=== PATIENT | male | born 1945 | race Caucasian/White ===

== ENCOUNTER 2017-09-21 14:51 | Inpatient (IN) ==
[2017-09-21] MEDS ORDERED: 0.9 % Sodium Chloride 1,000 ML IVC ONE (15:28)
[2017-09-21] MEDS ORDERED: Isovue-370 500 ML INFUS..BTL IV ONE (15:35)
--- NOTE | 2017-09-21 15:48 | Emergency Department Note ---
Disposition Clinical Impression: Lower gastrointestinal hemorrhage, Hematochezia Hemorrhoids Qualifiers: Hemorrhoid type: unspecified Qualified Code(s): K64.9 - Unspecified hemorrhoids Disposition: Admitted As Inpatient [facility]Primary Care Provider[facility] - Forms: ED Satisfaction Letter Time of Disposition: 19:30 General Adult HPI - General Chief complaint: ED GI Bleed Stated complaint: GI bleed Time Seen by Provider: 09/21/17 15:16 Source: patient Limitations: no limitations Nursing Notes Reviewed: Yes Vital Signs Reviewed: Yes - History of Present Illness HPI Narrative: 73-year-old male positive for history of Parkinson's, BPH, incontinence, hydrocephalus, aortic stenosis presents today for a 2 day history of bright red blood on stool. Patient is unable to provide history of present illness. is at bedside. Patient went to NH and was sent to [place] for further management. She states that the patient had 2 bloody stools yesterday in the evening at 1730 and 1930. Patient had another bloody stool this morning at 0800. has photograph of this morning's bowel movement. She reports that the patient has been acting more irritated. Bowel movements have been bright red and unformed. Denies worsening confusion, mental status. Patient takes aspirin but no other anticoagulant. Patient never had this kind of episode before. He has chronic constipation and takes lactulose/senna. Does admit to decrease in appetite. Denies chest pain, shortness of breath, hemoptysis. patient also admits to history of UTI 3 weeks ago treated at the NH with Bactrim and ampicillin. Currently denies dysuria/hematuria. Has not taken any medications for current bleed. Last colonoscopy in 2001 with unknown results. 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 He had open abdominal surgery due to trauma. No further acute complaints. Pt Subjective Complaint: Rectal bleeding Pain Scale: 0 - Related Data Home Medications Medication Instructions Recorded Confirmed Aspirin Enteric Coated [Aspirin EC] 81 mg PO DAILY 09/21/17 09/21/17 Brimonidine Tartrate [Alphagan P] 1 drop OP BID 09/21/17 09/21/17 Carbidopa/Levodopa 25/100 [Sinemet 1 tab PO QID 09/21/17 09/21/17 25/100] Cholecalciferol (D-3) [Vitamin D] 2,000 unit PO DAILY 09/21/17 09/21/17 Docusate Sodium [Colace] 200 mg PO BID PRN 09/21/17 09/21/17 Finasteride [Proscar] 5 mg PO DAILY 09/21/17 09/21/17 Furosemide [Lasix] 10 mg PO DAILY 09/21/17 09/21/17 Lactobacillus Combo No.10 1 cap PO DAILY 09/21/17 09/21/17 [Probiotic] Lactose-Reduced Food [Ensure Plus] 240 ml PO BID 09/21/17 09/21/17 Melatonin 10 mg PO HS 09/21/17 09/21/17 Quetiapine Fumarate [SEROquel] 12.5 mg PO QAM 09/21/17 09/21/17 Quetiapine Fumarate [SEROquel] 25 mg PO HS 09/21/17 09/21/17 Ropinirole HCl [Requip] 0.5 mg PO BID 09/21/17 09/21/17 Sennosides [Senna] 17.2 mg PO QPM PRN 09/21/17 09/21/17 Tamsulosin HCl [Flomax] 0.4 mg PO DAILY 09/21/17 09/21/17 Travoprost [Travatan Z] 1 drop OP HS 09/21/17 09/21/17 Trazodone HCl [Trazodone HCl] 100 mg PO 09/21/17 09/21/17 Allergies Allergy/AdvReac Type Severity Reaction Status Date / Time Buspirone AdvReac Intermediate Agitated Verified 09/21/17 17:38 lorazepam AdvReac Intermediate Agitated Verified 09/21/17 17:38 latanoprost AdvReac Mild eye redness Verified 09/21/17 17:38 levofloxacin AdvReac Mild Cramping Verified 09/21/17 17:38 of the Muscles divalproex sodium AdvReac Unknown Agitated Verified 09/21/17 17:38 All systems ED: reviewed and negative except as stated. Review of Systems: As Per HPI Constitutional: Reports: as per HPI, other (History of present illness obtained by at bedside) Cardiovascular: Reports: as per HPI Respiratory: Reports: as per HPI Gastrointestinal: Reports: as per HPI Musculoskeletal: Reports: as per HPI Integumentary: Reports: as per HPI Neurological: Reports: as per HPI Endocrine: Reports: as per HPI Past Medical History - Past Medical History Medical history: Reports: hyperlipidemia, hypertension, other Psychiatric history: Reports: no psych history - Social History Smoking Status: Never smoker Smokeless Tobacco Status: No Alcohol use: Reports: none Drug use: Reports: none Physical Exam - General Limitations: altered mental status, physical limitation, age General appearance: alert, in no apparent distress, cachectic, other (Patient is an flexed position.) - Head Head exam: atraumatic, normocephalic, normal inspection - Eye Eye exam: Present: normal appearance, EOMI. Absent: scleral icterus - Expanded Eye Exam Pupils: Left: reactive - ENT ENT exam: normal exam, normal oropharynx, mucous membranes moist - Expanded ENT Exam External ear exam: Present: normal external inspection Mouth exam: Present: normal external inspection Teeth exam: Present: normal inspection Throat exam: Present: normal inspection - Neck Neck exam: Present: normal inspection, full ROM, trachea midline - Chest Chest inspection: Present: normal inspection, symmetric chest wall rise - Respiratory Respiratory exam: Present: normal lung sounds bilaterally - Cardiovascular Cardiovascular exam: Present: regular rate, normal rhythm, normal heart sounds - Abdominal Exam Abdominal exam: Present: soft, Non-Tender, normal bowel sounds, other (Last upper quadrant scars noted from history of VICKI drain and PEG tube. Approximately 1 inch each. 15 cm vertical scar noted on epigastric area from expiratory abdominal surgery in the past.). 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 Absent: tenderness, pedal edema - Expanded Upper Extremity Exam Shoulder exam: Present: normal inspection, full ROM Arm exam: Present: normal inspection, full ROM Elbow exam: Present: normal inspection, full ROM Forearm/Wrist exam: Present: normal inspection, full ROM Hand exam: Present: normal inspection, full ROM Vascular exam: Normal: capillary refill, radial pulse - Expanded Lower Extremity Exam Hip/Pelvis exam: Present: normal inspection, full ROM Upper leg exam: Present: normal inspection, full ROM Knee exam: Present: normal inspection, full ROM Lower leg exam: Present: normal inspection, full ROM Ankle exam: Present: normal inspection, full ROM Foot/toe exam: Present: normal inspection, full ROM Neurovascular/Tendon exam: Absent: motor deficit, sensory deficit, tendon deficit - Back Exam Back exam: Present: other (flexed position). Absent: tenderness - Neurological Exam Neurological exam: Present: alert, other (oriented to person and year ) - Expanded Neurological Exam Patient oriented to: Present: person, place, time Coma Scale Eye Opening: Spontaneous Coma Scale Motor Response: Obeys Commands Coma Scale Verbal Response: Oriented Coma Scale Total: 15 - Psychiatric Psychiatric exam: Present: normal affect, normal mood - Skin Skin exam: Present: warm, dry, intact, normal color Course Course Narrative: And presents with active GI bleed. He is not on any anticoagulation besides aspirin 81 mg. We will obtain a CT abdomen/pelvis with contrast. CBC/CMP/PT/ INR/lactate pending. Hemoglobin at NH was 13.5. Blood type and crossing ordered. Pending Rodriguez and UA with culture 2/2 history of incontinence and UTI. External hemorrhoid noted without acute bleed, not source of bleeding. We will admit to hospitalist service once CT abdomen and lab work returns. Patient will likely require a repeat colonoscopy to determine source of bleeding. - Reevaluation(s) Reevaluation #1: CT results shows marked mural thickening involving the sigmoid colon and rectum compatible with nonspecific colitis/proctitis. Also possible UTI, but UA is negative. Will admit for GIB, unknown source. Pending hospitalist admission. Time: 19:20 Reevaluation #2: Patient is complaining of worsening agitation. He is requesting Seroquel. BP 165/116, repeat 158/112. Patient does not have history of high blood pressure. I will start him on his home dose Seroquel, trazodone, and melatonin. Pending admission Time: 20:30 Reevaluation #3: Patient spitted out his medications, including melatonin, clonidine, trazodone. Time: 20:50 Vital Signs Temperature 98.1 F 09/21/17 14:55 Pulse Rate 65 09/21/17 14:55 Respiratory Rate 12 09/21/17 14:55 Blood Pressure 142/100 09/21/17 14:55 O2 Sat by Pulse Oximetry 96 09/21/17 14:55 Temperature 98.1 F 09/21/17 14:55 Pulse Rate 79 09/21/17 19:30 Respiratory Rate 12 09/21/17 19:30 Blood Pressure 136/97 09/21/17 19:30 O2 Sat by Pulse Oximetry 94 09/21/17 19:30 Oxygen Delivery Oxygen Delivery Room Air Medical Decision Making - MDM Narrative Medical decision making narrative: patient with no past med hematologic disease presents today with 3 episodes of bright red blood in stool in the last 2 days. Patient is on aspirin but not on any other anticoagulant. White blood cell count elevated without signs of fever. Chest x-ray is unremarkable. Lactic acid 1.1, troponin 0.04. Patient has history of aortic stenosis. No previous cardiac workup. I recommended an echocardiogram on admission. Patient will likely require a colonoscopy to determine source of active bleed. Pending admission to hospitalist service. - Medical Records Medical records reviewed: Yes I reviewed the patient's medical records. - Lab Data Lab results reviewed: Yes I reviewed the patient's lab results. Result diagrams: 09/21/17 16:41 09/21/17 16:41 Lab Results 09/21/17 09/21/17 09/21/17 Range/Units 16:41 16:41 16:41 WBC 13.8 H (4.3-11.1) K/mcL RBC 4.51 (4.19-5.50) M/mcL Hgb 14.8 (12.9-16.9) g/dL Hct 43.3 (37.5-50.1) % MCV 96.0 (83.0-100.0) fL MCH 32.8 (28.0-33.3) pg MCHC 34.2 (31.6-35.5) g/dL RDW 12.7 (11.5-14.5) % Plt Count 161 (140-400) K/mcL MPV 11.2 (9.4-12.4) fL Immature Gran % 0.4 (0-4) % Seg Neutrophils % 73.2 % Lymphocytes % 13.7 % Monocytes % 8.3 % Eosinophils % 3.7 % Basophils % 0.7 % Neutrophils # 10.1 H (1.6-8.9) K/mcL Lymphocytes # 1.9 (0.6-4.6) K/mcL Monocytes # 1.1 (0.0-1.3) K/mcL Eosinophils # 0.5 (0.0-0.6) K/mcL Basophils # 0.1 (0.0-0.2) K/mcL PT 12.5 H (9.4-12.1) Seconds INR 1.2 APTT 39.4 H (26.0-36.0) Seconds Sodium (136-145) mEq/L Potassium (3.5-5.1) mEq/L Chloride (98-107) mEq/L Carbon Dioxide (23-29) mEq/L BUN (8-23) mg/dL Creatinine (0.70-1.30) mg/dL Est GFR ( Amer) (> 60) Est GFR (Non-Af Amer) (> 60) BUN/Creatinine Ratio (6-26) Glucose (70-105) mg/dL Calculated Osmolality (280-300) Lactic Acid (0.5-2.2) mmol/L Calcium (8.6-10.3) mg/dL Total Bilirubin (0.3-1.0) mg/dL AST (13-39) Units/L ALT (7-52) Units/L Alkaline Phosphatase (34-104) Units/L Troponin I (< 0.04) ng/mL Serum Total Protein (6.4-8.9) g/dL Albumin (3.5-5.7) g/dL Globulin (2.4-3.5) g/dL Albumin/Globulin Ratio (1.1-2.2) Urine Color (Yellow) Urine Clarity (Clear) Urine pH (5.0-8.0) pH Units Ur Specific [place] (1.010-1.025) Urine Protein (Neg-Trace) mg/dL Urine Glucose (UA) (Normal) mg/dL Urine Ketones (Negative) mg/dL Urine Blood (Negative) Urine Nitrite (Negative) Urine Bilirubin (Negative) Urine Urobilinogen (Normal) mg/dL Ur Leukocyte Esterase (Negative) Urine Microscopic RBC (0-3) per hpf Urine Microscopic WBC (0-3) per hpf Ur Squamous Epith Cells (None-Few) per lpf Urine Bacteria (None-Few) per hpf Hyaline Casts (None-Few) per lpf Ur Culture Indicated? (NO) Blood Type O POSITIVE Antibody Screen NEGATIVE 09/21/17 09/21/17 09/21/17 Range/Units 16:41 16:41 18:30 WBC (4.3-11.1) K/mcL RBC (4.19-5.50) M/mcL Hgb (12.9-16.9) g/dL Hct (37.5-50.1) % MCV (83.0-100.0) fL MCH (28.0-33.3) pg MCHC (31.6-35.5) g/dL RDW (11.5-14.5) % Plt Count (140-400) K/mcL MPV (9.4-12.4) fL Immature Gran % (0-4) % Seg Neutrophils % % Lymphocytes % % Monocytes % % Eosinophils % % Basophils % % Neutrophils # (1.6-8.9) K/mcL Lymphocytes # (0.6-4.6) K/mcL Monocytes # (0.0-1.3) K/mcL Eosinophils # (0.0-0.6) K/mcL Basophils # (0.0-0.2) K/mcL PT (9.4-12.1) Seconds INR APTT (26.0-36.0) Seconds Sodium 135 L (136-145) mEq/L Potassium 4.0 (3.5-5.1) mEq/L Chloride 102 (98-107) mEq/L Carbon Dioxide 23 (23-29) mEq/L BUN 28 H (8-23) mg/dL Creatinine 1.02 (0.70-1.30) mg/dL Est GFR ( Amer) > 60 (> 60) Est GFR (Non-Af Amer) > 60 (> 60) BUN/Creatinine Ratio 27 H (6-26) Glucose 99 (70-105) mg/dL Calculated Osmolality 286 (280-300) Lactic Acid 1.1 (0.5-2.2) mmol/L Calcium 9.6 (8.6-10.3) mg/dL Total Bilirubin 0.6 (0.3-1.0) mg/dL AST 13 (13-39) Units/L ALT 5 L (7-52) Units/L Alkaline Phosphatase 85 (34-104) Units/L Troponin I 0.04 H* (< 0.04) ng/mL Serum Total Protein 7.6 (6.4-8.9) g/dL Albumin 4.3 (3.5-5.7) g/dL Globulin 3.3 (2.4-3.5) g/dL Albumin/Globulin Ratio 1.3 (1.1-2.2) Urine Color Yellow (Yellow) Urine Clarity Clear (Clear) Urine pH 5.5 (5.0-8.0) pH Units Ur Specific [place] 1.015 (1.010-1.025) Urine Protein Negative (Neg-Trace) mg/dL Urine Glucose (UA) Normal (Normal) mg/dL Urine Ketones Negative (Negative) mg/dL Urine Blood Moderate H (Negative) Urine Nitrite Negative (Negative) Urine Bilirubin Negative (Negative) Urine Urobilinogen Normal (Normal) mg/dL Ur Leukocyte Esterase Trace H (Negative) Urine Microscopic RBC 3-5 H (0-3) per hpf Urine Microscopic WBC 0-3 (0-3) per hpf Ur Squamous Epith Cells Many H (None-Few) per lpf Urine Bacteria None Seen (None-Few) per hpf Hyaline Casts None Seen (None-Few) per lpf Ur Culture Indicated? NO. A (NO) Blood Type Antibody Screen - Radiology Data Radiology results reviewed: Yes I reviewed the patient's radiology results. - EKG Data EKG #1 EKG attestation: Yes I reviewed and interpreted this EKG. EKG results narrative: Ventricular rate 69, [place] interval 236, QRS 150. Prolonged [place] interval when compared with old EKG EKG shows normal: sinus rhythm Rate: normal Rhythm: NSR [place]/QRS: normal Heart block present: 1st Degree When compared to previous EKG there are: changes noted (prolonged [place] interval) Interpretation: no acute changes
--- NOTE | 2017-09-21 16:37 | Emergency Department Note ---
Disposition Clinical Impression: Lower gastrointestinal hemorrhage, Hematochezia Hemorrhoids Qualifiers: Hemorrhoid type: unspecified Qualified Code(s): K64.9 - Unspecified hemorrhoids Disposition: Admitted As Inpatient [facility]Primary Care Provider[facility] - Forms: ED Satisfaction Letter General Adult HPI - General Chief complaint: ED GI Bleed Stated complaint: GI bleed Time Seen by Provider: 09/21/17 15:16 Source: patient Limitations: altered mental status, physical limitation, age - History of Present Illness Pain Scale: 0 - Related Data Allergies Allergy/AdvReac Type Severity Reaction Status Date / Time Buspirone AdvReac Intermediate Agitated Verified 09/21/17 15:20 lorazepam AdvReac Intermediate Agitated Verified 09/21/17 15:20 latanoprost AdvReac Mild eye redness Verified 09/21/17 15:20 levofloxacin AdvReac Mild Cramping Verified 09/21/17 15:20 of the Muscles divalproex sodium AdvReac Unknown Agitated Verified 09/21/17 15:20 Constitutional: Reports: as per HPI, other (History of present illness obtained by at bedside) Cardiovascular: Reports: as per HPI Respiratory: Reports: as per HPI Gastrointestinal: Reports: as per HPI Musculoskeletal: Reports: as per HPI Integumentary: Reports: as per HPI Neurological: Reports: as per HPI Endocrine: Reports: as per HPI Past Medical History - Past Medical History Medical history: Reports: hyperlipidemia, hypertension, other Psychiatric history: Reports: no psych history - Social History Smoking Status: Never smoker Smokeless Tobacco Status: No Alcohol use: Reports: none Drug use: Reports: none Physical Exam - General Limitations: altered mental status, physical limitation, age General appearance: alert, in no apparent distress, cachectic, other (Patient is an flexed position.) Course Vital Signs Temperature 98.1 F 09/21/17 14:55 Pulse Rate 65 09/21/17 14:55 Respiratory Rate 12 09/21/17 14:55 Blood Pressure 142/100 09/21/17 14:55 O2 Sat by Pulse Oximetry 96 09/21/17 14:55 Temperature 98.1 F 09/21/17 14:55 Pulse Rate 65 09/21/17 14:55 Respiratory Rate 12 09/21/17 14:55 Blood Pressure 142/100 09/21/17 14:55 O2 Sat by Pulse Oximetry 94 09/21/17 16:05 Oxygen Delivery Oxygen Delivery Room Air Attestation Statement - Attestation Attestation: I examined this patient and my medical decision-making was reviewed with the Resident Physician. I agree with the documented findings, disposition and treatment plan as described except to the extent set forth below. I had face to face time with the patient. This is a 72-year-old whose had bright red blood per rectum for last couple of days. [facility]. His hemoglobin is in the normal range however his has a picture of a of grossly bloody bowel movement earlier today. Physical examination he does have an external hemorrhoid but this does not appear to be the source of the bleeding. Does have some mild tenderness of the abdomen without guarding or rebound. Lab work was reviewed. We will obtain a CT scan and admitted to the hospital.
[2017-09-21 16:59] LABS: Basophils # 0.1 K/mcL (0.0-0.2); Basophils % 0.7 %; Eosinophils # 0.5 K/mcL (0.0-0.6); Eosinophils % 3.7 %; Hematocrit 43.3 % (37.5-50.1); Hemoglobin 14.8 g/dL (12.9-16.9); Immature Granulocytes % 0.4 % (0-4); Lymphocytes # 1.9 K/mcL (0.6-4.6); Lymphocytes % 13.7 %; Mean Corpuscular HGB Conc 34.2 g/dL (31.6-35.5); Mean Corpuscular Hemoglobin 32.8 pg (28.0-33.3); Mean Platelet Volume 11.2 fL (9.4-12.4); Monocytes # 1.1 K/mcL (0.0-1.3); Monocytes % 8.3 %; Neutrophils # 10.1 K/mcL (1.6-8.9); Platelet Count 161 K/mcL (140-400); Red Blood Count 4.51 M/mcL (4.19-5.50); Red Cell Distribution Width 12.7 % (11.5-14.5); Segmented Neutrophils % 73.2 %
[2017-09-21 17:08] LABS: INR 1.2; Prothrombin Time 12.5 Seconds (9.4-12.1)
[2017-09-21 17:11] LABS: Activated Partial Thrombo Time 39.4 Seconds (26.0-36.0)
[2017-09-21 17:21] LABS: Troponin I 0.04 ng/mL (< 0.04)
[2017-09-21 17:28] LABS: BUN/Creatinine Ratio 27 (6-26); Blood Urea Nitrogen 28 mg/dL (8-23); Carbon Dioxide 23 mEq/L (23-29); Chloride 102 mEq/L (98-107); Sodium 135 mEq/L (136-145)
[2017-09-21 17:29] LABS: Alanine Aminotransferase 5 Units/L (7-52); Albumin 4.3 g/dL (3.5-5.7); Albumin/Globulin Ratio 1.3 (1.1-2.2); Alkaline Phosphatase 85 Units/L (34-104); Aspartate Amino Transferase 13 Units/L (13-39); Bilirubin,Total 0.6 mg/dL (0.3-1.0); Calcium 9.6 mg/dL (8.6-10.3); Globulin 3.3 g/dL (2.4-3.5); Glucose 99 mg/dL (70-105); Osmolality,Calculated 286 (280-300); Total Protein 7.6 g/dL (6.4-8.9); eGFR For African Americans > 60 (> 60); eGFR For Non-African Americans > 60 (> 60)
[2017-09-21 18:43] LABS: Bilirubin,Urine Negative (Negative); Blood,Urine Moderate (Negative); Clarity,Urine Clear (Clear); Color,Urine Yellow (Yellow); Glucose,Urine (UA) Normal (Normal); Ketones,Urine Negative (Negative); Leukocyte Esterase,Urine Trace (Negative); Nitrite,Urine Negative (Negative); PH,Urine 5.5 pH Units (5.0-8.0); Protein,Urine Negative (Neg-Trace); Specific Gravity,Urine 1.015 (1.010-1.025); Urobilinogen,Urine Normal (Normal)
[2017-09-21 18:45] LABS: Bacteria,Urine None Seen per hpf (None-Few); Hyaline Casts,Urine None Seen per lpf (None-Few); Squamous Epithelial Cell,Urine Many per lpf (None-Few); WBC,Urine 0-3 per hpf (0-3)
[2017-09-21] MEDS ORDERED: *HR* FentaNYL (PF) 100 MCG/2 ML VIAL IVP ONE (20:38)
[2017-09-21] MEDS: cloNIDine HCl 0.1 MG TABLET PO ONE ×2 (21:09→21:25)
[2017-09-21] MEDS: Melatonin 3 MG TABLET PO PRN (21:09)
[2017-09-21] MEDS: traZODone 50 MG TABLET PO SCH ×2 (21:09→21:25)
[2017-09-21] MEDS ORDERED: Naloxone 0.4 MG/ML INJ IVP PRN (21:45)
[2017-09-21] MEDS ORDERED: Acetaminophen 325 MG TABLET PO PRN (21:45)
[2017-09-21] MEDS ORDERED: Sennosides 8.6 MG TABLET PO PRN (21:58)
--- NOTE | 2017-09-21 22:10 | Internal Med History&Physical ---
Date of Encounter: 09/21/17 Time of Encounter: 21:30 Internal Medicine - H&P: HPI Chief complaint: rectal bleed Admitted From: Emergency Dept Plans for Post Hospital Care: Home History of present illness: Mr. Duran is a 72 year old male who presents to the ER tonight from the [place] [facility]. He presented to the [place] earlier today with complaints of rectal bleed. Patient had an episode last night and this morning in his Depends diaper. His was changing him when she noticed blood and blood clots in the stool. He therefore went to the [place] urgent care where they saw and assessed patient and then referred him to our ER. Workup in ER included CT scan of abdomen and pelvis along with routine labs. The CT scan revealed patient to have evidence of proctitis/colitis. He was therefore admitted to hospitalist. Upon my assessment of the patient in the ER, patient is sleeping and not cooperative with history. History was obtained mostly by his and his son. They confirmed above history. Prior to yesterday, he has had no bloody stools or any GI issues except for constipation. 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 His and son provide much of his care for him. However, he is verbal and interactive at times with them but not very physically active. Of note, he did have a recent UTI treated with 2 different antibiotics which he finished last week. He has had no bloody diarrhea or any diarrhea whatsoever. He suffers mostly from constipation. The bloody episode yesterday and today were the first time he has had these, and they were mostly blood and blood clots with very little formed stool. Past Med Surg Social Fam HX - Past Medical History Attestation: Yes The following information was validated with the patient. Source: old records reviewed, obtained from family Medical history: hyperlipidemia, hypertension, other Additional medical history: TBI (1977) brain shunt, parkinsons, Falls, cracked right orbital bone, fractured skull (2014), aortic stenosis, heart murmur, frequent UTIs. enlarged prostate Psychiatric history: no psych history - Past Surgical History Additional surgical history: brain surgery (1977), stomach bypass - Social History Smoking Status: Never smoker Smokeless Tobacco Status: No Alcohol use: none Drug use: none Current living situation: Home, With Family Activity Level: Mostly sedentary Recent Out of Country Travel Within the Last 8 Weeks: No - Family History Mother History Unknown: Yes Father History Unknown: Yes Internal Medicine - H&P: Meds Aspirin Enteric Coated [Aspirin EC] 81 mg PO DAILY 09/21/17 [History] Brimonidine Tartrate [Alphagan P] 1 drop OP BID 09/21/17 [History] Carbidopa/Levodopa 25/100 [Sinemet 25/100] 1 tab PO QID 09/21/17 [History] Cholecalciferol (D-3) [Vitamin D] 2,000 unit PO DAILY 09/21/17 [History] Docusate Sodium [Colace] 200 mg PO BID PRN 09/21/17 [History] Finasteride [Proscar] 5 mg PO DAILY 09/21/17 [History] Furosemide [Lasix] 10 mg PO DAILY 09/21/17 [History] Lactobacillus Combo No.10 [Probiotic] 1 cap PO DAILY 09/21/17 [History] Lactose-Reduced Food [Ensure Plus] 240 ml PO BID 09/21/17 [History] Melatonin 10 mg PO HS 09/21/17 [History] Quetiapine Fumarate [SEROquel] 12.5 mg PO QAM 09/21/17 [History] Quetiapine Fumarate [SEROquel] 25 mg PO HS 09/21/17 [History] Ropinirole HCl [Requip] 0.5 mg PO BID 09/21/17 [History] Sennosides [Senna] 17.2 mg PO QPM PRN 09/21/17 [History] Tamsulosin HCl [Flomax] 0.4 mg PO DAILY 09/21/17 [History] Travoprost [Travatan Z] 1 drop OP HS 09/21/17 [History] Trazodone HCl [Trazodone HCl] 100 mg PO HS 09/21/17 [History] 3 Allergy/AdvReac Type Severity Reaction Status Date / Time Buspirone AdvReac Intermediate Agitated Verified 09/21/17 17:38 lorazepam AdvReac Intermediate Agitated Verified 09/21/17 17:38 latanoprost AdvReac Mild eye redness Verified 09/21/17 17:38 levofloxacin AdvReac Mild Cramping Verified 09/21/17 17:38 of the Muscles divalproex sodium AdvReac Unknown Agitated Verified 09/21/17 17:38 Review of systems: per family - Constitutional Constitutional: no chills, no fever(s), no night sweats - EENT Eyes: no change in vision Nose, mouth and throat: no nasal congestion, no sore throat - Cardiovascular Cardiovascular ROS IM: no chest pain, no dyspnea, no edema - Respiratory Respiratory: no cough, no hemoptysis, no wheezing, no chest congestion, no excessive phlegm production - Gastrointestinal Gastrointestinal: constipation, hematochezia, no abdominal pain, no diarrhea, no melena, no nausea, no vomiting - Genitourinary Genitourinary ROS male: no dysuria, no flank pain, no hematuria - Musculoskeletal Musculoskeletal ROS IM: no joint swelling - Integumentary Integumentary IM: no rash, no jaundice - Neurological Neurological ROS: no focal weakness, no frequent falls, no headache(s) - Psychiatric Psychiatric: anxiety, depression - Endocrine Endocrine IM: no polydipsia, no polyuria - Hematologic/Lymphatic Hematologic/Lymphatic: no easy bruising - Allergic/Immunologic Allergic/Immunologic: no GI upset with certain foods - Constitutional Vitals: Temp Pulse Resp BP Pulse Ox 97.6 F 67 16 149/94 94 09/21/17 21:59 09/21/17 21:59 09/21/17 21:59 09/21/17 21:59 09/21/17 21:59 General appearance: Present: no acute distress Exam: sleeping, resting comfortably, not very cooperative with exam - Head Head exam: Present: normal inspection - Eye Eye exam: Present: normal appearance. Absent: scleral icterus - ENT ENT exam: Present: mucous membranes dry, normal exam - Neck Neck exam general surgery: Present: full ROM, supple. Absent: tenderness, nuchal rigidity, thyromegaly - Respiratory Respiratory exam: Present: CTAB. Absent: chest wall tenderness, rales, respiratory distress, rhonchi, wheezes - Cardiovascular Cardiovascular exam: Present: RRR, +S1, +S2, systolic murmur ( type murmur) - GI/Abdominal GI/Abdominal exam: Present: normal bowel sounds, soft, no peritoneal signs. Absent: guarding, hepatomegaly, mass, rebound, splenomegaly, tenderness Additional comments: old surgical scar on abdomen - Extremities Exam Extremities exam: Present: full ROM, normal capillary refill, warm, radial pulses palpable and symmetrical. Absent: calf tenderness, joint swelling, pedal edema, tenderness - Back Exam Back exam: Absent: CVA tenderness (L), CVA tenderness (R) - Neurological Exam Additional comments: somnolent; moves four extremities; not cooperative with exam - Psychiatric Additional comments: unable to assess - Skin Skin exam: Present: dry, intact, warm Internal Med - H&P Results - Labs CBC & Chem 7: 09/21/17 16:41 09/21/17 16:41 - EKG Data -: EKG Interpreted by Myself - EKG Data EKG comments: 09/21/17 22:16 NSR; incomplete RBBB - Diagnostic Studies CT scan - abdomen Additional comments: Report reviewed and proctitis/colitis noted. - Assessment and plan (1) Colitis Current Visit: Yes Status: Acute Assessment and plan: 1. Will treat with IVF, IV antibiotics, and clear liquid diet. 2. Advance diet as tolerated as long as clinical picture dictates. 3. May need strict bowel rest if condition worsens. Presently, abdominal exam is benign. 4. Patient will need endoscopy, likely outpatient once condition improves. May need inpatient endoscopy if patient develops significant bleed. 5. Monitor H/H. (2) Elevated troponin Current Visit: Yes Status: Acute Assessment and plan: 1. Per family, no reports of chest pain. 2. Will trend troponins, EKG's, and order ECHO. 3. Further work-up if indicated. (3) Aortic stenosis Current Visit: Yes Status: Chronic Assessment and plan: 1. Will order ECHO to evaluate degree of stenosis. 2. Per family, this is known and followed by [facility]. Qualifiers: Cardiac valve disease etiology: etiology unspecified Qualified Code(s): I35.0 - Nonrheumatic aortic (valve) stenosis (4) Parkinson disease Current Visit: Yes Status: Chronic Assessment and plan: 1. Continue home meds as appropriate (5) DVT prophylaxis Current Visit: Yes Status: Acute Assessment and plan: 1. Heparin SQ.
[2017-09-21] MEDS: 0.9 % Sodium Chloride 1,000 ML IVC SCH (23:24)
[2017-09-21] MEDS: MetroNIDAZOLE 500 MG/100 ML 500 MG/100 ML BAG IVPB SCH (23:24)
[2017-09-22] MEDS: Piperacillin/Tazobactam 3.375 GM in 0.9 % Sodium Chloride Mini Bag 100 ML IVPB SCH ×3 (00:21→18:55)
[2017-09-22] MEDS: Melatonin 3 MG TABLET PO PRN (03:00)
[2017-09-22 05:27] LABS: Basophils # 0.1 K/mcL (0.0-0.2); Basophils % 0.7 %; Eosinophils # 0.6 K/mcL (0.0-0.6); Eosinophils % 5.5 %; Hematocrit 38.6 % (37.5-50.1); Immature Granulocytes % 0.3 % (0-4); Lymphocytes # 1.7 K/mcL (0.6-4.6); Lymphocytes % 15.7 %; Mean Corpuscular HGB Conc 33.9 g/dL (31.6-35.5); Mean Corpuscular Hemoglobin 32.1 pg (28.0-33.3); Mean Corpuscular Volume 94.6 fL (83.0-100.0); Mean Platelet Volume 11.3 fL (9.4-12.4); Neutrophils # 7.4 K/mcL (1.6-8.9); Platelet Count 138 K/mcL (140-400); Red Blood Count 4.08 M/mcL (4.19-5.50); Red Cell Distribution Width 12.5 % (11.5-14.5); Segmented Neutrophils % 68.8 %
[2017-09-22 05:32] LABS: Hemoglobin 13.1 g/dL (12.9-16.9)
[2017-09-22 05:46] LABS: Alanine Aminotransferase 13 Units/L (7-52); Albumin 3.5 g/dL (3.5-5.7); Albumin/Globulin Ratio 1.3 (1.1-2.2); Alkaline Phosphatase 68 Units/L (34-104); Aspartate Amino Transferase 12 Units/L (13-39); BUN/Creatinine Ratio 25 (6-26); Bilirubin,Total 0.8 mg/dL (0.3-1.0); Blood Urea Nitrogen 22 mg/dL (8-23); Calcium 8.9 mg/dL (8.6-10.3); Carbon Dioxide 20 mEq/L (23-29); Chloride 109 mEq/L (98-107); Chol/HDL Ratio 3.4 (0-4.9); Cholesterol 151 mg/dL (< 200); Globulin 2.8 g/dL (2.4-3.5); Glucose 90 mg/dL (70-105); HDL Cholesterol 44 mg/dL (40-59); LDL Cholesterol,Calculated 94 mg/dL (0-99); Magnesium 1.9 mg/dL (1.6-2.6); Osmolality,Calculated 289 (280-300); Potassium 3.7 mEq/L (3.5-5.1); Sodium 138 mEq/L (136-145); Total Protein 6.3 g/dL (6.4-8.9); Triglycerides 63 mg/dL (< 150); eGFR For African Americans > 60 (> 60); eGFR For Non-African Americans > 60 (> 60)
[2017-09-22] MEDS: *HR* Heparin 5,000 UNIT/ML VIAL SQ SCH ×3 (06:33→17:16)
[2017-09-22] MEDS: MetroNIDAZOLE 500 MG/100 ML 500 MG/100 ML BAG IVPB SCH ×2 (08:58→17:12)
[2017-09-22] MEDS ORDERED: LACTOSE REDUCED FOOD PO SCH (09:00)
[2017-09-22] MEDS ORDERED: Lactobacillus 1 EACH CAP.SPRINK PO SCH (09:00)
[2017-09-22] MEDS: rOPINIRole 0.25 MG TABLET PO SCH ×2 (09:06→20:45)
[2017-09-22] MEDS: Cholecalciferol (D-3) 1,000 UNIT TABLET PO SCH (09:06)
[2017-09-22] MEDS: Finasteride 5 MG TABLET PO SCH (09:06)
[2017-09-22] MEDS: Aspirin Enteric Coated 81 MG Tablet PO SCH (09:07)
[2017-09-22] MEDS: Carbidopa/Levodopa 25/100 TABLET PO SCH ×4 (09:07→20:46)
[2017-09-22] MEDS: 0.9 % Sodium Chloride 1,000 ML IVC SCH (11:21)
--- NOTE | 2017-09-22 16:30 | Internal Med Progress Note ---
Date of Encounter: 09/22/17 Time of Encounter: 14:00 - Assessment and plan (1) Colitis Current Visit: Yes Status: Acute Assessment and plan: continue current antibiotic, risk of GI bleeding,counseling about May need colonoscopy counseling about risk and benefit based on my discussion and comorbidity she want to avoid any invacontinue medical management (2) Elevated troponin Current Visit: Yes Status: Acute Assessment and plan: possible secondary to volume depletion, no evidence of acute coronary syndrome , patient denies any chest pain close monitoring (3) Aortic stenosis Current Visit: Yes Status: Chronic Qualifiers: Cardiac valve disease etiology: etiology unspecified Qualified Code(s): I35.0 - Nonrheumatic aortic (valve) stenosis (4) Parkinson disease Current Visit: Yes Status: Chronic Assessment and plan: ontinue current medication (5) DVT prophylaxis Current Visit: Yes Status: Acute (6) Dementia with behavioral problem Current Visit: Yes Status: Acute Assessment and plan: counseling and about polypharmacy,add Aricept to help with his progressive memory loss and behavioral problem,onsider SSRI for his anxiety Qualifiers: Dementia type: unspecified type Qualified Code(s): F03.91 - Unspecified dementia with behavioral disturbance - Time Spent With Patient Total time spent is greater than 50% in coordination of care (as documented) at patient's floor/unit and/or counseling patient: - Subjective Interval history: no rectal bleeding, patient denies any chest pain orshortness of breath,no abdominal pain,no nausea or vomiting - Constitutional Vitals: Temp Pulse Resp BP Pulse Ox 98.5 F 81 16 128/77 94 09/22/17 15:19 09/22/17 15:19 09/22/17 15:19 09/22/17 15:19 09/22/17 15:19 General appearance: Present: cooperative, pleasant, no acute distress - Neck Neck exam general surgery: Present: supple, trachea midline. Absent: lymphadenopathy - Respiratory Respiratory exam: Present: CTAB. Absent: accessory muscle use, rales, rhonchi, wheezes - Cardiovascular Cardiovascular exam: Present: RRR, +S1, +S2. Absent: diastolic murmur, gallop, rubs, systolic murmur - GI/Abdominal GI/Abdominal exam: Present: normal bowel sounds, soft, no peritoneal signs. Absent: distended, tenderness - Extremities Exam Extremities exam: Present: warm, radial pulses palpable and symmetrical. Absent : calf tenderness, cyanotic, pedal edema Internal Medicine: Result - Labs CBC & Chem 7: 09/22/17 05:02 09/22/17 05:02 Labs: Short CBC 09/22/17 Range/Units 05:02 WBC 10.7 (4.3-11.1) K/mcL Hgb 13.1 D (12.9-16.9) g/dL Hct 38.6 (37.5-50.1) % Plt Count 138 L (140-400) K/mcL Neutrophils # 7.4 (1.6-8.9) K/mcL BMP 09/22/17 05:02 Sodium 138 Potassium 3.7 Chloride 109 H Carbon Dioxide 20 L BUN 22 Creatinine 0.87 Glucose 90 Calcium 8.9 Cardiac Enzymes 09/21/17 09/22/17 Range/Units 22:42 05:02 Troponin I 0.04 H* 0.04 H* (< 0.04) ng/mL Liver Function 09/22/17 Range/Units 05:02 Total Bilirubin 0.8 (0.3-1.0) mg/dL AST 12 L (13-39) Units/L ALT 13 (7-52) Units/L Alkaline Phosphatase 68 (34-104) Units/L Albumin 3.5 (3.5-5.7) g/dL - ABG Interpretation ABG results: PT/INR, D-dimer PT 12.5 Seconds (9.4-12.1) H 09/21/17 16:41 Consult Discharge Plan - Plan Referrals: [facility] [Outside]
[2017-09-22] MEDS: Thiamine (B-1) 100 MG TABLET PO SCH (20:07)
[2017-09-22] MEDS: traZODone 50 MG TABLET PO SCH ×2 (20:39→20:46)
[2017-09-22] MEDS: Lactobacillus 1 EACH CAP.SPRINK PO SCH (20:45)
[2017-09-22] MEDS: Mirtazapine 15 MG TABLET PO SCH (20:45)
[2017-09-22] MEDS: Latanoprost 2.5 ML BOTTLE BOTH EYES SCH (20:54)
[2017-09-22] MEDS ORDERED: MELATONIN 10 MG PO SCH (21:00)
[2017-09-22] MEDS ORDERED: TRAZODONE HCL 100 MG PO SCH (21:00)
[2017-09-23] MEDS: MetroNIDAZOLE 500 MG/100 ML 500 MG/100 ML BAG IVPB SCH ×3 (00:14→16:22)
[2017-09-23] MEDS: Piperacillin/Tazobactam 3.375 GM in 0.9 % Sodium Chloride Mini Bag 100 ML IVPB SCH ×3 (00:14→16:22)
[2017-09-23] MEDS: Melatonin 3 MG TABLET PO PRN (03:50)
[2017-09-23 03:51] LABS: Basophils # 0.1 K/mcL (0.0-0.2); Eosinophils # 0.6 K/mcL (0.0-0.6); Eosinophils % 6.5 %; Hematocrit 38.3 % (37.5-50.1); Hemoglobin 13.2 g/dL (12.9-16.9); Immature Granulocytes % 0.3 % (0-4); Lymphocytes # 1.9 K/mcL (0.6-4.6); Lymphocytes % 20.8 %; Mean Corpuscular HGB Conc 34.5 g/dL (31.6-35.5); Mean Corpuscular Hemoglobin 32.2 pg (28.0-33.3); Mean Corpuscular Volume 93.4 fL (83.0-100.0); Mean Platelet Volume 11.8 fL (9.4-12.4); Monocytes # 0.9 K/mcL (0.0-1.3); Monocytes % 9.9 %; Neutrophils # 5.7 K/mcL (1.6-8.9); Platelet Count 145 K/mcL (140-400); Red Cell Distribution Width 12.4 % (11.5-14.5); Segmented Neutrophils % 61.5 %
[2017-09-23 04:10] LABS: BUN/Creatinine Ratio 18 (6-26); Blood Urea Nitrogen 15 mg/dL (8-23); Calcium 9.1 mg/dL (8.6-10.3); Carbon Dioxide 19 mEq/L (23-29); Chloride 108 mEq/L (98-107); Glucose 95 mg/dL (70-105); Magnesium 1.8 mg/dL (1.6-2.6); Osmolality,Calculated 287 (280-300); Phosphorous 2.5 mg/dL (2.7-4.5); Potassium 3.5 mEq/L (3.5-5.1); Sodium 138 mEq/L (136-145); eGFR For African Americans > 60 (> 60); eGFR For Non-African Americans > 60 (> 60)
[2017-09-23] MEDS: Cholecalciferol (D-3) 1,000 UNIT TABLET PO SCH (09:21)
[2017-09-23] MEDS: Lactobacillus 1 EACH CAP.SPRINK PO SCH ×2 (09:21→21:03)
[2017-09-23] MEDS: Finasteride 5 MG TABLET PO SCH (09:22)
[2017-09-23] MEDS: rOPINIRole 0.25 MG TABLET PO SCH ×2 (09:22→21:00)
[2017-09-23] MEDS: Carbidopa/Levodopa 25/100 TABLET PO SCH ×4 (09:22→21:03)
[2017-09-23] MEDS: Aspirin Enteric Coated 81 MG Tablet PO SCH (09:22)
[2017-09-23] MEDS: Thiamine (B-1) 100 MG TABLET PO SCH (09:22)
--- NOTE | 2017-09-23 16:31 | Internal Med Progress Note ---
Date of Encounter: 09/23/17 Time of Encounter: 11:25 - Assessment and plan (1) Colitis Current Visit: Yes Status: Acute (2) Elevated troponin Current Visit: Yes Status: Acute (3) Aortic stenosis Current Visit: Yes Status: Chronic Qualifiers: Cardiac valve disease etiology: etiology unspecified Qualified Code(s): I35.0 - Nonrheumatic aortic (valve) stenosis Code(s): I35.0 - Nonrheumatic aortic (valve) stenosis SNOMED Code(s): 57718267 (4) Parkinson disease Current Visit: Yes Status: Chronic (5) DVT prophylaxis Current Visit: Yes Status: Acute (6) Dementia with behavioral problem Current Visit: Yes Status: Acute Qualifiers: Dementia type: unspecified type Qualified Code(s): F03.91 - Unspecified dementia with behavioral disturbance - Time Spent With Patient Plan Continue current antibiotic, monitor for next 24-hour with the patient agitation , replace phosphorus, Total time spent is greater than 50% in coordination of care (as documented) at patient's floor/unit and/or counseling patient: 25 - 35 minutes - Subjective Interval history: No bowel movement since yesterday, patient was confused overnight had some agitation - Constitutional Vitals: Temp Pulse Resp BP Pulse Ox 97.3 F L 52 16 142/85 96 09/23/17 12:05 09/23/17 12:05 09/23/17 12:05 09/23/17 12:05 09/23/17 12:05 General appearance: Present: cooperative, pleasant, no acute distress - Head Head exam: Present: atraumatic, normocephalic - Eye Eye exam: Present: PERRL, conjuntiva pink, sclera anicteric Pupils: Present: PERRL - Neck Neck exam general surgery: Present: supple, trachea midline. Absent: lymphadenopathy - Respiratory Respiratory exam: Present: decreased breath sounds. Absent: accessory muscle use, rales, rhonchi, wheezes - Cardiovascular Cardiovascular exam: Present: RRR, +S1, +S2, systolic murmur (3/6). Absent: gallop, rubs - GI/Abdominal GI/Abdominal exam: Present: normal bowel sounds, soft, tenderness (Right lower quadrant tenderness), no peritoneal signs. Absent: distended - Extremities Exam Extremities exam: Present: warm, radial pulses palpable and symmetrical. Absent : calf tenderness, cyanotic, pedal edema - Skin Skin exam: Present: dry, intact Internal Medicine: Result - Labs CBC & Chem 7: 09/23/17 03:02 09/23/17 03:02 Labs: Short CBC 09/23/17 Range/Units 03:02 WBC 9.2 (4.3-11.1) K/mcL Hgb 13.2 (12.9-16.9) g/dL Hct 38.3 (37.5-50.1) % Plt Count 145 (140-400) K/mcL Neutrophils # 5.7 (1.6-8.9) K/mcL BMP 09/23/17 03:02 Sodium 138 Potassium 3.5 Chloride 108 H Carbon Dioxide 19 L BUN 15 Creatinine 0.83 Glucose 95 Calcium 9.1 - ABG Interpretation ABG results: PT/INR, D-dimer PT 12.5 Seconds (9.4-12.1) H 09/21/17 16:41 Consult Discharge Plan - Plan Referrals: [facility] [Outside]
[2017-09-23] MEDS: *HR* Heparin 5,000 UNIT/ML VIAL SQ SCH (17:06)
[2017-09-23] MEDS: Sennosides 8.6 MG TABLET PO SCH (17:06)
[2017-09-23] MEDS: Mirtazapine 15 MG TABLET PO SCH (21:01)
[2017-09-23] MEDS: traZODone 50 MG TABLET PO SCH (21:01)
[2017-09-24] MEDS: Melatonin 3 MG TABLET PO PRN (00:11)
[2017-09-24] MEDS: Piperacillin/Tazobactam 3.375 GM in 0.9 % Sodium Chloride Mini Bag 100 ML IVPB SCH ×3 (00:14→17:22)
[2017-09-24] MEDS: MetroNIDAZOLE 500 MG/100 ML 500 MG/100 ML BAG IVPB SCH ×3 (00:23→17:23)
[2017-09-24] MEDS: Latanoprost 2.5 ML BOTTLE BOTH EYES SCH ×2 (00:25→21:25)
[2017-09-24] MEDS: *HR* Heparin 5,000 UNIT/ML VIAL SQ SCH ×2 (06:36→17:22)
[2017-09-24] MEDS: Lactobacillus 1 EACH CAP.SPRINK PO SCH ×2 (08:08→21:24)
[2017-09-24] MEDS: Aspirin Enteric Coated 81 MG Tablet PO SCH (08:08)
[2017-09-24] MEDS: Carbidopa/Levodopa 25/100 TABLET PO SCH ×4 (08:08→20:12)
[2017-09-24] MEDS: Finasteride 5 MG TABLET PO SCH (08:08)
[2017-09-24] MEDS: rOPINIRole 0.25 MG TABLET PO SCH ×2 (08:09→20:12)
[2017-09-24] MEDS: Thiamine (B-1) 100 MG TABLET PO SCH (08:09)
[2017-09-24] MEDS: Cholecalciferol (D-3) 1,000 UNIT TABLET PO SCH (08:09)
--- NOTE | 2017-09-24 10:02 | Internal Med Progress Note ---
Date of Encounter: 09/24/17 Time of Encounter: 10:00 - Assessment and plan (1) Colitis Current Visit: Yes Status: Acute (2) Elevated troponin Current Visit: Yes Status: Acute (3) Aortic stenosis Current Visit: Yes Status: Chronic Qualifiers: Cardiac valve disease etiology: etiology unspecified Qualified Code(s): I35.0 - Nonrheumatic aortic (valve) stenosis Code(s): I35.0 - Nonrheumatic aortic (valve) stenosis SNOMED Code(s): 01689553 (4) Parkinson disease Current Visit: Yes Status: Chronic (5) DVT prophylaxis Current Visit: Yes Status: Acute (6) Dementia with behavioral problem Current Visit: Yes Status: Acute Qualifiers: Dementia type: unspecified type Qualified Code(s): F03.91 - Unspecified dementia with behavioral disturbance (7) Bronchitis Current Visit: Yes Status: Acute - Time Spent With Patient Plan Patient was coughing while eating, with his lung exam bilateral basilar crackles cannot rule out aspiration, will check chest x-ray will order speech evaluation, patient continued to have trouble with bowel movement, will titrate laxatives ,close monitoring patient condition .Total time spent is greater than 50% in coordination of care (as documented) at patient's floor/unit and/or counseling patient:25 minutes 25 - 35 minutes - Subjective Interval history: Based on staff report patient had a good nights sleep last night but he is confused agitated this morning, had some coughing while eating sometimes, no bowel movement yet - Constitutional Vitals: Temp Pulse Resp BP Pulse Ox 98.0 F 78 18 151/84 94 09/24/17 06:53 09/24/17 06:53 09/24/17 06:53 09/24/17 06:53 09/24/17 06:53 General appearance: Present: cooperative, pleasant, no acute distress - Head Head exam: Present: atraumatic, normocephalic - Neck Neck exam general surgery: Present: supple, trachea midline. Absent: lymphadenopathy - Respiratory Respiratory exam: Present: decreased breath sounds, rales (Crackles bilateral lung base). Absent: accessory muscle use, rhonchi, wheezes - Cardiovascular Cardiovascular exam: Present: RRR, +S1, +S2. Absent: diastolic murmur, gallop, rubs, systolic murmur - Psychiatric Psychiatric exam: Present: anxious Internal Medicine: Result - Labs CBC & Chem 7: 09/23/17 03:02 09/23/17 03:02 - ABG Interpretation ABG results: PT/INR, D-dimer PT 12.5 Seconds (9.4-12.1) H 09/21/17 16:41 Consult Discharge Plan - Plan Referrals: [facility] [Outside]
[2017-09-24] MEDS: Sennosides 8.6 MG TABLET PO SCH (17:22)
[2017-09-24] MEDS: Mirtazapine 15 MG TABLET PO SCH (20:12)
[2017-09-24] MEDS: traZODone 50 MG TABLET PO SCH (20:12)
--- NOTE | 2017-09-24 21:19 | Electrocardiograph Report ---
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
[2017-09-25] MEDS: Piperacillin/Tazobactam 3.375 GM in 0.9 % Sodium Chloride Mini Bag 100 ML IVPB SCH ×2 (00:30→08:40)
[2017-09-25] MEDS: MetroNIDAZOLE 500 MG/100 ML 500 MG/100 ML BAG IVPB SCH ×2 (00:30→08:40)
[2017-09-25] MEDS: *HR* Heparin 5,000 UNIT/ML VIAL SQ SCH ×2 (05:28→18:40)
[2017-09-25 07:43] LABS: BUN/Creatinine Ratio 13 (6-26); Blood Urea Nitrogen 14 mg/dL (8-23); Calcium 8.8 mg/dL (8.6-10.3); Carbon Dioxide 21 mEq/L (23-29); Chloride 108 mEq/L (98-107); Glucose 85 mg/dL (70-105); Magnesium 1.8 mg/dL (1.6-2.6); Osmolality,Calculated 284 (280-300); Potassium 3.8 mEq/L (3.5-5.1); Sodium 137 mEq/L (136-145); eGFR For African Americans > 60 (> 60); eGFR For Non-African Americans > 60 (> 60)
[2017-09-25] MEDS: rOPINIRole 0.25 MG TABLET PO SCH ×2 (08:42→22:28)
[2017-09-25] MEDS: Aspirin Enteric Coated 81 MG Tablet PO SCH (08:42)
[2017-09-25] MEDS: Lactobacillus 1 EACH CAP.SPRINK PO SCH ×2 (08:42→22:45)
[2017-09-25] MEDS: Carbidopa/Levodopa 25/100 TABLET PO SCH ×4 (08:42→22:29)
[2017-09-25] MEDS: Thiamine (B-1) 100 MG TABLET PO SCH (08:42)
[2017-09-25] MEDS: Finasteride 5 MG TABLET PO SCH (08:42)
[2017-09-25] MEDS: Cholecalciferol (D-3) 1,000 UNIT TABLET PO SCH (08:43)
--- NOTE | 2017-09-25 09:05 | Electrocardiograph Report ---
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
--- NOTE | 2017-09-25 11:05 | Internal Med Progress Note ---
Date of Encounter: 09/25/17 Time of Encounter: 14:30 - Assessment and plan (1) Colitis Current Visit: Yes Status: Acute (2) Elevated troponin Current Visit: Yes Status: Acute Assessment and plan: Possible demand ischemia secondary to colitis, no evidence of chest pain (3) Aortic stenosis Current Visit: Yes Status: Chronic Qualifiers: Cardiac valve disease etiology: etiology unspecified Qualified Code(s): I35.0 - Nonrheumatic aortic (valve) stenosis Code(s): I35.0 - Nonrheumatic aortic (valve) stenosis SNOMED Code(s): 14113569 (4) Parkinson disease Current Visit: Yes Status: Chronic (5) DVT prophylaxis Current Visit: Yes Status: Acute (6) Dementia with behavioral problem Current Visit: Yes Status: Acute Qualifiers: Dementia type: unspecified type Qualified Code(s): F03.91 - Unspecified dementia with behavioral disturbance (7) Bronchitis Current Visit: Yes Status: Acute - Time Spent With Patient Plan I had long discussion with patient and family at bedside discussed about colitis and differential diagnosis, counseling about the need to continue antibiotic for 10 more days, patient lost his IV many times and he is agitated with trying to insert IV again, discussed with staff and family , will change to oral antibiotic ,counseling about oral hydration, staff was able to encourage patient patient drank fine in the morning and at lunch. Counseling to continue to encourage fluid, counseling about the nutritional supplement , discussed with family about the differential diagnosis and may need colonoscopy once his condition stable ,counseling about risk and benefit, stated based on his wishes, she does not think he will do it for any diagnostic purposes only for therapeutic purposes , if any recurrent GI bleeding , counseling about the different medication and side effect, counseling about risk and benefit and risk of remeron vs trazodone ,counseling about changing medication, understands the plan, she is feeling ,he is much better today compared to yesterday, with his weakness deconditioning heart to ambulate with marketing operations assistant with his ambulation , need rehabilitation need [facility] social service was consulted Total time spent is greater than 50% in coordination of care (as documented) at patient's floor/unit and/or counseling patient: 25 - 35 minutes - Subjective Interval history: Patient is more calm today, more cooperative with staff, had very good lunch, hard to ambulate with marketing operations assistant, decrease oral intake of fluid overnight - Constitutional Vitals: Temp Pulse Resp BP Pulse Ox 98.1 F 58 18 110/68 96 09/25/17 09:40 09/25/17 09:40 09/25/17 09:40 09/25/17 09:40 09/25/17 09:40 General appearance: Present: cooperative, pleasant, no acute distress - Head Head exam: Present: atraumatic, normocephalic Additional comments: Dry mucosa - Neck Neck exam general surgery: Present: supple, trachea midline. Absent: lymphadenopathy - Respiratory Respiratory exam: Present: CTAB. Absent: accessory muscle use, rales, rhonchi, wheezes - Cardiovascular Cardiovascular exam: Present: RRR, +S1, +S2, systolic murmur. Absent: diastolic murmur, gallop, rubs - GI/Abdominal GI/Abdominal exam: Present: normal bowel sounds, soft, tenderness (Right lower quadrant tenderness improving), no peritoneal signs. Absent: bruit, distended - Extremities Exam Extremities exam: Present: warm, radial pulses palpable and symmetrical. Absent : calf tenderness, cyanotic, pedal edema - Neurological Exam Neurological exam: Present: CN II-XII intact, oriented X3, no focal deficits. Absent: pronater drift, facial droop, speech deficit Internal Medicine: Result - Labs CBC & Chem 7: 09/23/17 03:02 09/25/17 06:58 Labs: BMP 09/25/17 06:58 Sodium 137 Potassium 3.8 Chloride 108 H Carbon Dioxide 21 L BUN 14 Creatinine 1.08 Glucose 85 Calcium 8.8 - ABG Interpretation ABG results: PT/INR, D-dimer PT 12.5 Seconds (9.4-12.1) H 09/21/17 16:41 - Impressions Impressions Chest X-Ray 09/24/17 09:59 IMPRESSION: 1. Small right pleural effusion. D/ / Hemanth Blanc MD / Hemanth Blanc MD Interpreting Provider: Hemanth Blanc MD Consult Discharge Plan - Plan Referrals: [facility] [Outside] Prescriptions: metFORMIN [Glucophage] 850 mg PO BIDWM #180 tablet
[2017-09-25] MEDS: metroNIDAZOLE 500 MG TABLET PO SCH ×2 (15:41→22:29)
[2017-09-25] MEDS: Sennosides 8.6 MG TABLET PO SCH (18:40)
[2017-09-25] MEDS: Mirtazapine 15 MG TABLET PO SCH (22:26)
[2017-09-25] MEDS: traZODone 50 MG TABLET PO SCH (22:29)
[2017-09-25] MEDS: Latanoprost 2.5 ML BOTTLE BOTH EYES SCH (22:44)
[2017-09-26] MEDS: D5% in 0.45% NACL 1,000 ML IVC SCH ×2 (01:29→01:30)
[2017-09-26] MEDS: *HR* Heparin 5,000 UNIT/ML VIAL SQ SCH ×2 (06:22→19:29)
[2017-09-26 06:45] LABS: Basophils # 0.1 K/mcL (0.0-0.2); Basophils % 1.1 %; Eosinophils # 0.6 K/mcL (0.0-0.6); Eosinophils % 7.8 %; Hemoglobin 13.8 g/dL (12.9-16.9); Immature Granulocytes % 0.2 % (0-4); Lymphocytes # 2.1 K/mcL (0.6-4.6); Lymphocytes % 25.8 %; Mean Corpuscular HGB Conc 34.5 g/dL (31.6-35.5); Mean Corpuscular Hemoglobin 32.2 pg (28.0-33.3); Mean Corpuscular Volume 93.5 fL (83.0-100.0); Mean Platelet Volume 11.3 fL (9.4-12.4); Monocytes # 0.9 K/mcL (0.0-1.3); Monocytes % 11.5 %; Neutrophils # 4.4 K/mcL (1.6-8.9); Platelet Count 156 K/mcL (140-400); Red Blood Count 4.28 M/mcL (4.19-5.50); Red Cell Distribution Width 12.6 % (11.5-14.5); Segmented Neutrophils % 53.6 %
[2017-09-26 07:08] LABS: BUN/Creatinine Ratio 15 (6-26); Blood Urea Nitrogen 14 mg/dL (8-23); Calcium 9.4 mg/dL (8.6-10.3); Carbon Dioxide 20 mEq/L (23-29); Chloride 109 mEq/L (98-107); Glucose 89 mg/dL (70-105); Osmolality,Calculated 288 (280-300); Phosphorous 2.7 mg/dL (2.7-4.5); Potassium 3.9 mEq/L (3.5-5.1); Sodium 139 mEq/L (136-145); eGFR For African Americans > 60 (> 60); eGFR For Non-African Americans > 60 (> 60)
[2017-09-26] MEDS: rOPINIRole 0.25 MG TABLET PO SCH ×2 (09:58→20:39)
[2017-09-26] MEDS: metroNIDAZOLE 500 MG TABLET PO SCH ×3 (09:58→20:36)
[2017-09-26] MEDS: Thiamine (B-1) 100 MG TABLET PO SCH (09:58)
[2017-09-26] MEDS: Finasteride 5 MG TABLET PO SCH (09:58)
[2017-09-26] MEDS: Lactobacillus 1 EACH CAP.SPRINK PO SCH ×2 (09:59→20:38)
[2017-09-26] MEDS: Carbidopa/Levodopa 25/100 TABLET PO SCH ×4 (10:00→20:38)
[2017-09-26] MEDS: Cholecalciferol (D-3) 1,000 UNIT TABLET PO SCH (10:00)
[2017-09-26] MEDS: Aspirin Enteric Coated 81 MG Tablet PO SCH (10:00)
--- NOTE | 2017-09-26 12:58 | Internal Med Progress Note ---
Date of Encounter: 09/26/17 Time of Encounter: 13:00 - Assessment and plan (1) Colitis Current Visit: Yes Status: Acute Assessment and plan: Resolved on cipro and fllagyl. complete 10-14 day course. Will need outpatient colonscopy (2) Elevated troponin Current Visit: Yes Status: Acute Assessment and plan: Possible demand ischemia secondary to colitis, no evidence of chest pain (3) Aortic stenosis Current Visit: Yes Status: Chronic Assessment and plan: Stable. F/U 2D echo Qualifiers: Cardiac valve disease etiology: etiology unspecified Qualified Code(s): I35.0 - Nonrheumatic aortic (valve) stenosis Code(s): I35.0 - Nonrheumatic aortic (valve) stenosis SNOMED Code(s): 48557140 (4) Parkinson disease Current Visit: Yes Status: Chronic Assessment and plan: ontinue current medication (5) DVT prophylaxis Current Visit: Yes Status: Acute Assessment and plan: 1. Heparin SQ. (6) Dementia with behavioral problem Current Visit: Yes Status: Acute Assessment and plan: counseling and about polypharmacy,add Aricept to help with his progressive memory loss and behavioral problem,onsider SSRI for his anxiety Qualifiers: Dementia type: unspecified type Qualified Code(s): F03.91 - Unspecified dementia with behavioral disturbance - Time Spent With Patient Total time spent is greater than 50% in coordination of care (as documented) at patient's floor/unit and/or counseling patient: - Subjective Interval history: No acute events overnight - Constitutional Vitals: Temp Pulse Resp BP Pulse Ox 98.7 F 70 16 139/89 96 09/26/17 10:20 09/26/17 10:20 09/26/17 10:20 09/26/17 10:20 09/26/17 10:20 General appearance: Present: cooperative, pleasant, no acute distress - Head Head exam: Present: atraumatic, normocephalic - Eye Eye exam: Present: PERRL, conjuntiva pink, sclera anicteric Pupils: Present: PERRL - Neck Neck exam general surgery: Present: supple, trachea midline. Absent: lymphadenopathy - Respiratory Respiratory exam: Present: CTAB. Absent: accessory muscle use, rales, rhonchi, wheezes - Cardiovascular Cardiovascular exam: Present: RRR, +S1, +S2. Absent: diastolic murmur, gallop, rubs, systolic murmur - GI/Abdominal GI/Abdominal exam: Present: normal bowel sounds, soft, no peritoneal signs. Absent: distended, tenderness - Extremities Exam Extremities exam: Present: warm, radial pulses palpable and symmetrical. Absent : calf tenderness, cyanotic, pedal edema - Neurological Exam Neurological exam: Present: CN II-XII intact, oriented X3, no focal deficits. Absent: pronater drift, facial droop, speech deficit - Skin Skin exam: Present: dry, intact Internal Medicine: Result - Labs CBC & Chem 7: 09/26/17 06:22 09/26/17 06:22 Labs: Short CBC 09/26/17 Range/Units 06:22 WBC 8.1 (4.3-11.1) K/mcL Hgb 13.8 (12.9-16.9) g/dL Hct 40.0 (37.5-50.1) % Plt Count 156 (140-400) K/mcL Neutrophils # 4.4 (1.6-8.9) K/mcL BMP 09/26/17 06:22 Sodium 139 Potassium 3.9 Chloride 109 H Carbon Dioxide 20 L BUN 14 Creatinine 0.93 Glucose 89 Calcium 9.4 - ABG Interpretation ABG results: PT/INR, D-dimer PT 12.5 Seconds (9.4-12.1) H 09/21/17 16:41 Consult Discharge Plan - Plan Referrals: [facility] [Outside] Prescriptions: metFORMIN [Glucophage] 850 mg PO BIDWM #180 tablet
[2017-09-26] MEDS: Sennosides 8.6 MG TABLET PO SCH (19:30)
[2017-09-26] MEDS: traZODone 50 MG TABLET PO SCH (20:37)
[2017-09-26] MEDS: Mirtazapine 15 MG TABLET PO SCH (20:37)
[2017-09-26] MEDS: Latanoprost 2.5 ML BOTTLE BOTH EYES SCH (22:30)
[2017-09-27 06:25] LABS: Hematocrit 38.4 % (37.5-50.1); Hemoglobin 13.3 g/dL (12.9-16.9); Immature Granulocytes % 0.3 % (0-4); Immature Platelets 5.8 % (1.1-6.1); Lymphocytes % 23.6 %; Mean Corpuscular HGB Conc 34.6 g/dL (31.6-35.5); Mean Corpuscular Hemoglobin 32.8 pg (28.0-33.3); Mean Corpuscular Volume 94.8 fL (83.0-100.0); Mean Platelet Volume 11.8 fL (9.4-12.4); Monocytes % 11.3 %; Platelet Count 140 K/mcL (140-400); Red Blood Count 4.05 M/mcL (4.19-5.50); Red Cell Distribution Width 12.6 % (11.5-14.5); Segmented Neutrophils % 56.2 %
[2017-09-27 06:26] LABS: Basophils # 0.1 K/mcL (0.0-0.2); Basophils % 1.1 %; Eosinophils # 0.6 K/mcL (0.0-0.6); Eosinophils % 7.5 %; Lymphocytes # 1.8 K/mcL (0.6-4.6); Monocytes # 0.8 K/mcL (0.0-1.3); Neutrophils # 4.2 K/mcL (1.6-8.9)
[2017-09-27 06:39] LABS: BUN/Creatinine Ratio 17 (6-26); Blood Urea Nitrogen 16 mg/dL (8-23); Carbon Dioxide 22 mEq/L (23-29); Chloride 107 mEq/L (98-107); Glucose 91 mg/dL (70-105); Osmolality,Calculated 283 (280-300); Potassium 3.7 mEq/L (3.5-5.1); Sodium 136 mEq/L (136-145); eGFR For African Americans > 60 (> 60); eGFR For Non-African Americans > 60 (> 60)
[2017-09-27] MEDS: *HR* Heparin 5,000 UNIT/ML VIAL SQ SCH (07:18)
[2017-09-27] MEDS: metroNIDAZOLE 500 MG TABLET PO SCH (10:22)
[2017-09-27] MEDS: rOPINIRole 0.25 MG TABLET PO SCH (10:22)
[2017-09-27] MEDS: Finasteride 5 MG TABLET PO SCH (10:23)
[2017-09-27] MEDS: Lactobacillus 1 EACH CAP.SPRINK PO SCH (10:23)
[2017-09-27] MEDS: Thiamine (B-1) 100 MG TABLET PO SCH (10:23)
[2017-09-27] MEDS: Cholecalciferol (D-3) 1,000 UNIT TABLET PO SCH (10:23)
[2017-09-27] MEDS: Carbidopa/Levodopa 25/100 TABLET PO SCH ×2 (10:23→13:38)
[2017-09-27] MEDS: Aspirin Enteric Coated 81 MG Tablet PO SCH (10:23)
--- NOTE | 2017-09-27 12:16 | Discharge Summary ---
Orders not resulted at time of discharge: Pending orders 09/28/17 04:00 Basic Metabolic Panel AM 0400 CBC [Complete Blood Count] [HEME] AM 0400 09/29/17 04:00 Basic Metabolic Panel AM 0400 CBC [Complete Blood Count] [HEME] AM 04009/30/17 04:00 Basic Metabolic Panel AM 0400 CBC [Complete Blood Count] [HEME] AM 0400 10/01/17 04:00 Basic Metabolic Panel AM 0400 CBC [Complete Blood Count] [HEME] AM 0400 10/02/17 04:00 Basic Metabolic Panel AM 0400 CBC [Complete Blood Count] [HEME] AM 0400 Date of Encounter: 09/27/17 Time of Encounter: 12:15 - Discharge Diagnosis (1) Colitis Priority: Primary Status: Acute Assessment and Plan: 72 year old male who presents to the ER from the [place] [facility]. He presented to the [place] earlier today with complaints of rectal bleed. Patient had 2 episodes in his Depends diaper. His was changing him when she noticed blood and blood clots in the stool. He had a CT abdomen and pelvis which showed evidence of proctitis and colitis. He was started on cipro and flagyl with resolution of his GI symptoms. He will be discharged to complete a 10 day course of cipro and flagyl. He will need outpatient colonoscopy. His disposition is ECF. 35minutes was spent discharging this patient. (2) Elevated troponin Priority: Secondary Status: Acute (3) Aortic stenosis Priority: Secondary Status: Chronic Qualifiers: Cardiac valve disease etiology: etiology unspecified Qualified Code(s): I35.0 - Nonrheumatic aortic (valve) stenosis Code(s): I35.0 - Nonrheumatic aortic (valve) stenosis SNOMED Code(s): 73441026 (4) Parkinson disease Priority: Secondary Status: Chronic (5) DVT prophylaxis Priority: Secondary Status: Acute (6) Dementia with behavioral problem Priority: Secondary Status: Acute Qualifiers: Dementia type: unspecified type Qualified Code(s): F03.91 - Unspecified dementia with behavioral disturbance Hospital course: Mr. Duran is a 72 year old male - Time Spent with Patient Total time spent providing and/or coordinating discharge services: - Discharge Medications Prescriptions: Ciprofloxacin [Cipro] 500 mg PO BID #8 tablet metFORMIN [Glucophage] 850 mg PO BIDWM #180 tablet metroNIDAZOLE [Flagyl] 500 mg PO TID #12 tablet Mirtazapine [Remeron] 7.5 mg PO HS #60 tablet Thiamine (B-1) [Vitamin B-1] 200 mg PO DAILY #60 tablet Home Medications: Aspirin Enteric Coated [Aspirin EC] 81 mg PO DAILY 09/21/17 [History] Brimonidine Tartrate [Alphagan P] 1 drop OP BID 09/21/17 [History] Carbidopa/Levodopa 25/100 [Sinemet 25/100] 1 tab PO QID 09/21/17 [History] Cholecalciferol (D-3) [Vitamin D] 2,000 unit PO DAILY 09/21/17 [History] Docusate Sodium [Colace] 200 mg PO BID PRN 09/21/17 [History] Finasteride [Proscar] 5 mg PO DAILY 09/21/17 [History] Furosemide [Lasix] 10 mg PO DAILY 09/21/17 [History] Lactobacillus Combo No.10 [Probiotic] 1 cap PO DAILY 09/21/17 [History] Lactose-Reduced Food [Ensure Plus] 240 ml PO BID 09/21/17 [History] Melatonin 10 mg PO HS 09/21/17 [History] Quetiapine Fumarate [Seroquel] 12.5 mg PO QAM 09/21/17 [History] Quetiapine Fumarate [Seroquel] 25 mg PO HS 09/21/17 [History] Ropinirole HCl [Requip] 0.5 mg PO BID 09/21/17 [History] Sennosides [Senna] 17.2 mg PO QPM PRN 09/21/17 [History] Tamsulosin HCl [Flomax] 0.4 mg PO DAILY 09/21/17 [History] Travoprost [Travatan Z] 1 drop OP HS 09/21/17 [History] Trazodone HCl 100 mg PO HS 09/21/17 [History] metFORMIN [Glucophage] 850 mg PO BIDWM #180 tablet 09/25/17 [Rx] Ciprofloxacin [Cipro] 500 mg PO BID #8 tablet 09/27/17 [Rx] Mirtazapine [Remeron] 7.5 mg PO HS #60 tablet 09/27/17 [Rx] Thiamine (B-1) [Vitamin B-1] 200 mg PO DAILY #60 tablet 09/27/17 [Rx] metroNIDAZOLE [Flagyl] 500 mg PO TID #12 tablet 09/27/17 [Rx] Allergies/Adverse Reactions: 3 Allergy/AdvReac Type Severity Reaction Status Date / Time Buspirone AdvReac Intermediate Agitated Verified 09/21/17 17:38 lorazepam AdvReac Intermediate Agitated Verified 09/21/17 17:38 latanoprost AdvReac Mild eye redness Verified 09/21/17 17:38 levofloxacin AdvReac Mild Cramping Verified 09/21/17 17:38 of the Muscles divalproex sodium AdvReac Unknown Agitated Verified 09/21/17 17:38 Date of admission: 09/21/17 21:05 [facility] Consults: 09/25/17 15:37 Consult to Physical Therapy [CONS] Routine Comment: Evaluate, develop and implement POC Reason for Consult: increased weakness, deconditioning, voices she is interested in patient going for short term rehab. Does patient have active BEDREST order?: No Is patient medically & hemodynamically stable?: Yes Patient assessed for mobility or mobilized this visit?: No 09/25/17 15:38 Consult to Occupational Therapy [CONS] Routine Comment: Evaluate, develop and implement POC Reason for Consult: increased weakness, deconditioning, voices she is interested in patient going for short term rehab. Does patient have active BEDREST order?: No Is patient medically & hemodynamically stable?: Yes Patient assessed for mobility or mobilized this visit?: No - Constitutional Vitals: Temp Pulse Resp BP Pulse Ox 97.4 F L 81 16 148/102 96 09/27/17 10:53 09/27/17 10:53 09/27/17 10:53 09/27/17 10:53 09/27/17 10:53 General appearance: Present: cooperative, pleasant, no acute distress - Head Head exam: Present: atraumatic, normocephalic - Eye Eye exam: Present: PERRL, conjuntiva pink, sclera anicteric Pupils: Present: PERRL - Neck Neck exam general surgery: Present: supple, trachea midline. Absent: lymphadenopathy - Respiratory Respiratory exam: Present: CTAB. Absent: accessory muscle use, rales, rhonchi, wheezes - Cardiovascular Cardiovascular exam: Present: RRR, +S1, +S2. Absent: diastolic murmur, gallop, rubs, systolic murmur - GI/Abdominal GI/Abdominal exam: Present: normal bowel sounds, soft, no peritoneal signs. Absent: distended, tenderness - Extremities Exam Extremities exam: Present: warm, radial pulses palpable and symmetrical. Absent : calf tenderness, cyanotic, pedal edema - Neurological Exam Neurological exam: Present: CN II-XII intact, oriented X3, no focal deficits. Absent: pronater drift, facial droop, speech deficit - Skin Skin exam: Present: dry, intact - Patient Status Disposition: Transfer SNF Condition: Good - Discharge Instructions Follow Up With: [facility] [Outside]
[2017-09-27 16:32] VITALS: BP 130/84
--- NOTE | 2017-09-27 17:05 | Physician Discharge Referral ---
- Diagnosis (1) Colitis Priority: Primary Status: Acute (2) Elevated troponin Priority: Secondary Status: Acute (3) Aortic stenosis Priority: Secondary Status: Chronic (4) Parkinson disease Status: Chronic (5) DVT prophylaxis Priority: Secondary Status: Acute (6) Dementia with behavioral problem Priority: Secondary Status: Acute Prognosis: Good - Transfer Medications Prescriptions: Ciprofloxacin [Cipro] 500 mg PO BID #8 tablet metFORMIN [Glucophage] 850 mg PO BIDWM #180 tablet metroNIDAZOLE [Flagyl] 500 mg PO TID #12 tablet Mirtazapine [Remeron] 7.5 mg PO HS #60 tablet Thiamine (B-1) [Vitamin B-1] 200 mg PO DAILY #60 tablet Home Medications: Aspirin Enteric Coated [Aspirin EC] 81 mg PO DAILY 09/21/17 [History] Brimonidine Tartrate [Alphagan P] 1 drop OP BID 09/21/17 [History] Carbidopa/Levodopa 25/100 [Sinemet 25/100] 1 tab PO QID 09/21/17 [History] Cholecalciferol (D-3) [Vitamin D] 2,000 unit PO DAILY 09/21/17 [History] Docusate Sodium [Colace] 200 mg PO BID PRN 09/21/17 [History] Finasteride [Proscar] 5 mg PO DAILY 09/21/17 [History] Furosemide [Lasix] 10 mg PO DAILY 09/21/17 [History] Lactobacillus Combo No.10 [Probiotic] 1 cap PO DAILY 09/21/17 [History] Lactose-Reduced Food [Ensure Plus] 240 ml PO BID 09/21/17 [History] Melatonin 10 mg PO HS 09/21/17 [History] Quetiapine Fumarate [Seroquel] 12.5 mg PO QAM 09/21/17 [History] Quetiapine Fumarate [Seroquel] 25 mg PO HS 09/21/17 [History] Ropinirole HCl [Requip] 0.5 mg PO BID 09/21/17 [History] Sennosides [Senna] 17.2 mg PO QPM PRN 09/21/17 [History] Tamsulosin HCl [Flomax] 0.4 mg PO DAILY 09/21/17 [History] Travoprost [Travatan Z] 1 drop OP HS 09/21/17 [History] Trazodone HCl 100 mg PO HS 09/21/17 [History] metFORMIN [Glucophage] 850 mg PO BIDWM #180 tablet 09/25/17 [Rx] Ciprofloxacin [Cipro] 500 mg PO BID #8 tablet 09/27/17 [Rx] Mirtazapine [Remeron] 7.5 mg PO HS #60 tablet 09/27/17 [Rx] Thiamine (B-1) [Vitamin B-1] 200 mg PO DAILY #60 tablet 09/27/17 [Rx] metroNIDAZOLE [Flagyl] 500 mg PO TID #12 tablet 09/27/17 [Rx] Allergies/Adverse Reactions: 3 Allergy/AdvReac Type Severity Reaction Status Date / Time Buspirone AdvReac Intermediate Agitated Verified 09/21/17 17:38 lorazepam AdvReac Intermediate Agitated Verified 09/21/17 17:38 latanoprost AdvReac Mild eye redness Verified 09/21/17 17:38 levofloxacin AdvReac Mild Cramping Verified 09/21/17 17:38 of the Muscles divalproex sodium AdvReac Unknown Agitated Verified 09/21/17 17:38 - Respiratory Orders Smoking Cessation: Smoking cessation has been advised. For more information, call the [place] Tobacco Quit Line at 1-026-EHFKNOW. CERTIFICATION: I certify that the transfer of the above named patient to an Extended Care Facility is necessary for the continuing treatment of the diagnosis listed. The above information is true and accurate reflection of patient's current condition. Confidential - Redisclosure prohibited without a patient's written consent.
== END 2017-09-27 17:43 | DRG 392 ==
LOC: EMEROO 14:51 → 3ANU 21:05
PROVIDERS: ADMIT Internal Medicine; ATTEND Internal Medicine

== ENCOUNTER 2018-11-19 21:48 | Inpatient (IN) ==
--- NOTE | 2018-11-19 21:52 | Emergency Department Note ---
Disposition Clinical Impression: Community acquired pneumonia Qualifiers: Laterality: left Lung location: unspecified part of lung Qualified Code(s): J18.9 - Pneumonia, unspecified organism Disposition: Admitted As Inpatient Condition: Good [facility] Provider[facility] - Forms: ED Satisfaction Letter Time of Disposition: 00:20 General Adult HPI - General Stated complaint: low O2 Time Seen by Provider: 11/19/18 21:51 Source: patient, EMS Mode of arrival: EMS Limitations: no limitations Nursing Notes Reviewed: Yes Vital Signs Reviewed: Yes - History of Present Illness HPI Narrative: Male patient presenting to emergency department by EMS with his . Patient does have a history of a TBI as well as Parkinsons and aortic stenosis. Patient reports that the patient did have a cough for proximally 5 days but this did clear up yesterday. She states that he was doing well yesterday however today he was drinking some ensure this evening around 4:30 and he started began to cough. She is afraid that he possibly choked on this. She states ever since then he is been having a harder time breathing. She did call the home health nurse because they have hospice he came out stated they thought they heard some rattling in his chest and his pulse ox would not stay above 95%. This is abnormal for the patient. He does not generally use oxygen. - Related Data Home Medications Medication Instructions Recorded Confirmed Aspirin Enteric Coated [Aspirin EC] 81 mg PO DAILY 09/21/17 09/21/17 Brimonidine Tartrate [Alphagan P] 1 drop OP BID 09/21/17 09/21/17 Carbidopa/Levodopa 25/100 [Sinemet 1 tab PO QID 09/21/17 09/21/17 25/100] Cholecalciferol (D-3) [Vitamin D] 2,000 unit PO DAILY 09/21/17 09/21/17 Docusate Sodium [Colace] 200 mg PO BID PRN 09/21/17 09/21/17 Finasteride [Proscar] 5 mg PO DAILY 09/21/17 09/21/17 Furosemide [Lasix] 10 mg PO DAILY 09/21/17 09/21/17 Lactobacillus Combo No.10 1 cap PO DAILY 09/21/17 09/21/17 [Probiotic] Lactose-Reduced Food [Ensure Plus] 240 ml PO BID 09/21/17 09/21/17 Melatonin 10 mg PO HS 09/21/17 09/21/17 Quetiapine Fumarate [Seroquel] 12.5 mg PO QAM 09/21/17 09/21/17 Quetiapine Fumarate [Seroquel] 25 mg PO HS 09/21/17 09/21/17 Ropinirole HCl [Requip] 0.5 mg PO BID 09/21/17 09/21/17 Sennosides [Senna] 17.2 mg PO QPM PRN 09/21/17 09/21/17 Tamsulosin HCl [Flomax] 0.4 mg PO DAILY 09/21/17 09/21/17 Travoprost [Travatan Z] 1 drop OP HS 09/21/17 09/21/17 Trazodone HCl 100 mg PO HS 09/21/17 09/21/17 Previous Rx's Medication Instructions Recorded metFORMIN [Glucophage] 850 mg PO BIDWM #180 tablet 09/25/17 Ciprofloxacin [Cipro] 500 mg PO BID #8 tablet 09/27/17 Mirtazapine [Remeron] 7.5 mg PO HS #60 tablet 09/27/17 Thiamine (B-1) [Vitamin B-1] 200 mg PO DAILY #60 tablet 09/27/17 metroNIDAZOLE [Flagyl] 500 mg PO TID #12 tablet 09/27/17 Ondansetron ODT [Zofran ODT] 4 mg PO Q8HR #7 tab.rapdis 10/25/18 Allergies Allergy/AdvReac Type Severity Reaction Status Date / Time Buspirone AdvReac Intermediate Agitated Verified 09/21/17 17:38 lorazepam AdvReac Intermediate Agitated Verified 09/21/17 17:38 latanoprost AdvReac Mild eye redness Verified 09/21/17 17:38 levofloxacin AdvReac Mild Cramping Verified 09/21/17 17:38 of the Muscles divalproex sodium AdvReac Unknown Agitated Verified 09/21/17 17:38 All systems ED: reviewed and negative except as stated. Review of Systems: As Per HPI Limitations: ROS unobtainable due to patients medical condition (Review of s ystems obtained from the patient's ) Constitutional: Denies: fever, chills ENT ED: Denies: congestion Respiratory: Reports: cough, dyspnea, sputum production Gastrointestinal: Denies: nausea, vomiting, diarrhea Past Medical History - Past Medical History Attestation: Yes The following information was validated with the patient. Source: patient Medical history: Reports: hyperlipidemia, hypertension, other Psychiatric history: Reports: no psych history - Social History Smoking Status: Never smoker Smokeless Tobacco Status: No Alcohol use: Reports: none Drug use: Reports: none Physical Exam - General Limitations: altered mental status General appearance: alert - Head Head exam: atraumatic, normocephalic, normal inspection - Eye Eye exam: Present: normal appearance, PERRL, EOMI. Absent: scleral icterus - ENT ENT exam: normal exam, normal oropharynx, mucous membranes moist - Neck Neck exam: Present: normal inspection, full ROM, trachea midline - Chest Chest inspection: Present: normal inspection, symmetric chest wall rise - Respiratory Respiratory exam: Present: other (Diminished lung sounds in the bases.). Absent: accessory muscle use - Cardiovascular Cardiovascular exam: Present: regular rate, normal rhythm, systolic murmur (Loud ejection murmur) - Abdominal Exam Abdominal exam: Present: soft, Non-Tender, scar (Well healed midline). Absent: tenderness, distention, guarding, rebound, rigidity, organomegaly - Extremities Exam Extremities exam: Present: normal inspection, full ROM, normal capillary refill. Absent: tenderness, pedal edema, calf tenderness - Neurological Exam Neurological exam: Present: alert - Psychiatric Psychiatric exam: Present: agitated - Skin Skin exam: Present: warm, dry, intact, normal color Course Course Narrative: Patient is demented. Frequently hollering at people in the room. Diminished lung sounds throughout. Concern for possible aspiration pneumonia this evening. Patient is a DNR CCA. He is febrile while here and tachycardic. Patient's oxygen saturation is decreasing below 94% on room air. He was placed on oxygen. We will do a sepsis workup on the patient and provide him with antibiotics for possible lung source at this time. We will get a basic lab workup on patient as well as a UA. - Reevaluation(s) Reevaluation #1: Patient with a left retrocardiac airspace opacity. Likely pneumonia. We did treat patient with azithromycin as well as Rocephin. We will admit patient to the hospital for his decomposition and pneumonia. Time: 23:50 - Consultations Consultation #1: Dr Kang accepted Pt in stable condition. Time: 00:20 Vital Signs Temperature 100.2 F H 11/19/18 21:53 Pulse Rate 102 11/19/18 21:53 Respiratory Rate 21 11/19/18 21:53 Blood Pressure 82/68 11/19/18 21:53 O2 Sat by Pulse Oximetry 96 11/19/18 21:53 Temperature 99 F 11/19/18 23:29 Pulse Rate 85 11/19/18 23:29 Respiratory Rate 22 11/19/18 23:29 Blood Pressure 95/78 11/19/18 23:29 O2 Sat by Pulse Oximetry 100 11/19/18 23:29 Oxygen Delivery Oxygen Delivery Nasal Cannula Medical Decision Making - Medical Records Medical records reviewed: Yes I reviewed the patient's medical records. - Lab Data Result diagrams: 11/19/18 22:08 11/19/18 22:08 Lab Results 11/19/18 11/19/18 11/19/18 Range/Units 22:08 22:08 22:08 WBC 18.6 H (4.3-11.1) K/mcL RBC 4.13 L (4.19-5.50) M/mcL Hgb 13.2 (12.9-16.9) g/dL Hct 39.0 (37.5-50.1) % MCV 94.4 (83.0-100.0) fL MCH 32.0 (28.0-33.3) pg MCHC 33.8 (31.6-35.5) g/dL RDW 12.7 (11.5-14.5) % Plt Count 125 L (140-400) K/mcL MPV 11.4 (9.4-12.4) fL Immature Gran % 0.4 (0-4) % Seg Neutrophils % 86.0 % Lymphocytes % 4.7 % Monocytes % 8.5 % Eosinophils % 0.2 % Basophils % 0.2 % Neutrophils # 16.0 H (1.6-8.9) K/mcL Lymphocytes # 0.9 (0.6-4.6) K/mcL Monocytes # 1.6 H (0.0-1.3) K/mcL Eosinophils # 0.0 (0.0-0.6) K/mcL Basophils # 0.0 (0.0-0.2) K/mcL Sodium 137 (136-145) mEq/L Potassium 3.5 (3.5-5.1) mEq/L Chloride 109 H (98-107) mEq/L Carbon Dioxide 20 L (23-29) mEq/L BUN 31 H (8-23) mg/dL Creatinine 0.95 (0.70-1.30) mg/dL Est GFR ( Amer) > 60 (> 60) Est GFR (Non-Af Amer) > 60 (> 60) BUN/Creatinine Ratio 33 H (6-26) Glucose 125 H (70-105) mg/dL Calculated Osmolality 292 (280-300) Lactic Acid 1.3 (0.5-2.2) mmol/L Calcium 8.6 (8.6-10.3) mg/dL Phosphorus 2.0 L (2.7-4.5) mg/dL Magnesium 1.9 (1.6-2.6) mg/dL Total Bilirubin 0.6 (0.3-1.0) mg/dL Direct Bilirubin 0.2 (0.0-0.2) mg/dL Indirect Bilirubin 0.4 (0.0-1.2) mg/dL AST 15 (13-39) Units/L ALT 5 L (7-52) Units/L Alkaline Phosphatase 64 (34-104) Units/L Troponin I 0.06 H* (< 0.04) ng/mL Serum Total Protein 6.4 (6.4-8.9) g/dL Albumin 3.4 L (3.5-5.7) g/dL Globulin 3.0 (2.4-3.5) g/dL Albumin/Globulin Ratio 1.1 (1.1-2.2) Urine Color (Yellow) Urine Clarity (Clear) Urine pH (5.0-8.0) pH Units Ur Specific [place] (1.010-1.025) Urine Protein (Neg-Trace) mg/dL Urine Glucose (UA) (Normal) mg/dL Urine Ketones (Negative) mg/dL Urine Blood (Negative) Urine Nitrite (Negative) Urine Bilirubin (Negative) Urine Urobilinogen (Normal) mg/dL Ur Leukocyte Esterase (Negative) Urine Microscopic RBC (0-3) per hpf Urine Microscopic WBC (0-3) per hpf Ur Squamous Epith Cells (None-Few) per lpf Urine Bacteria (None-Few) per hpf Hyaline Casts (None-Few) per lpf Ur Culture Indicated? (NO) 11/19/18 Range/Units 22:18 WBC (4.3-11.1) K/mcL RBC (4.19-5.50) M/mcL Hgb (12.9-16.9) g/dL Hct (37.5-50.1) % MCV (83.0-100.0) fL MCH (28.0-33.3) pg MCHC (31.6-35.5) g/dL RDW (11.5-14.5) % Plt Count (140-400) K/mcL MPV (9.4-12.4) fL Immature Gran % (0-4) % Seg Neutrophils % % Lymphocytes % % Monocytes % % Eosinophils % % Basophils % % Neutrophils # (1.6-8.9) K/mcL Lymphocytes # (0.6-4.6) K/mcL Monocytes # (0.0-1.3) K/mcL Eosinophils # (0.0-0.6) K/mcL Basophils # (0.0-0.2) K/mcL Sodium (136-145) mEq/L Potassium (3.5-5.1) mEq/L Chloride (98-107) mEq/L Carbon Dioxide (23-29) mEq/L BUN (8-23) mg/dL Creatinine (0.70-1.30) mg/dL Est GFR ( Amer) (> 60) Est GFR (Non-Af Amer) (> 60) BUN/Creatinine Ratio (6-26) Glucose (70-105) mg/dL Calculated Osmolality (280-300) Lactic Acid (0.5-2.2) mmol/L Calcium (8.6-10.3) mg/dL Phosphorus (2.7-4.5) mg/dL Magnesium (1.6-2.6) mg/dL Total Bilirubin (0.3-1.0) mg/dL Direct Bilirubin (0.0-0.2) mg/dL Indirect Bilirubin (0.0-1.2) mg/dL AST (13-39) Units/L ALT (7-52) Units/L Alkaline Phosphatase (34-104) Units/L Troponin I (< 0.04) ng/mL Serum Total Protein (6.4-8.9) g/dL Albumin (3.5-5.7) g/dL Globulin (2.4-3.5) g/dL Albumin/Globulin Ratio (1.1-2.2) Urine Color Dark Yellow (Yellow) Urine Clarity Clear (Clear) Urine pH 5.0 (5.0-8.0) pH Units Ur Specific [place] 1.021 (1.010-1.025) Urine Protein Negative (Neg-Trace) mg/dL Urine Glucose (UA) Normal (Normal) mg/dL Urine Ketones Trace H (Negative) mg/dL Urine Blood Negative (Negative) Urine Nitrite Negative (Negative) Urine Bilirubin Small H (Negative) Urine Urobilinogen Normal (Normal) mg/dL Ur Leukocyte Esterase Trace H (Negative) Urine Microscopic RBC 0-3 (0-3) per hpf Urine Microscopic WBC 0-3 (0-3) per hpf Ur Squamous Epith Cells Many H (None-Few) per lpf Urine Bacteria None Seen (None-Few) per hpf Hyaline Casts None Seen (None-Few) per lpf Ur Culture Indicated? YES A (NO) - EKG Data EKG #1 EKG attestation: Yes I reviewed and interpreted this EKG. EKG results narrative: Sinus tachycardia at a rate of 101. SD interval is 170. QRS duration is 147. QT is 378. QTC is 490. No signs of acute ischemia. Flattening of his T waves. No significant change from previous EKG dated 10/25/2018. Patient does have a right bundle branch block.
[2018-11-19] MEDS ORDERED: cefTRIAXone 1,000 MG in Water for inj. (sterile) 10 ML IVP ONE (22:02)
[2018-11-19] MEDS ORDERED: Azithromycin 500 MG in D5% in Water 250 ML IVPB ONE (22:02)
[2018-11-19 22:24] LABS: Basophils % 0.2 %; Eosinophils % 0.2 %; Hemoglobin 13.2 g/dL (12.9-16.9); Immature Granulocytes % 0.4 % (0-4); Lymphocytes # 0.9 K/mcL (0.6-4.6); Lymphocytes % 4.7 %; Mean Corpuscular HGB Conc 33.8 g/dL (31.6-35.5); Mean Corpuscular Volume 94.4 fL (83.0-100.0); Mean Platelet Volume 11.4 fL (9.4-12.4); Monocytes # 1.6 K/mcL (0.0-1.3); Monocytes % 8.5 %; Platelet Count 125 K/mcL (140-400); Red Blood Count 4.13 M/mcL (4.19-5.50); Red Cell Distribution Width 12.7 % (11.5-14.5); White Blood Count 18.6 K/mcL (4.3-11.1)
[2018-11-19] MEDS: 0.9 % Sodium Chloride 1,000 ML IVC SCH ×3 (22:34→23:26)
[2018-11-19 22:38] LABS: Bilirubin,Urine Small (Negative); Blood,Urine Negative (Negative); Clarity,Urine Clear (Clear); Color,Urine Dark Yellow (Yellow); Glucose,Urine (UA) Normal (Normal); Ketones,Urine Trace mg/dL (Negative); Leukocyte Esterase,Urine Trace (Negative); Nitrite,Urine Negative (Negative); Protein,Urine Negative (Neg-Trace); Specific Gravity,Urine 1.021 (1.010-1.025); Urobilinogen,Urine Normal (Normal)
[2018-11-19 22:39] LABS: Bacteria,Urine None Seen per hpf (None-Few); Hyaline Casts,Urine None Seen per lpf (None-Few); RBC,Urine 0-3 per hpf (0-3); Squamous Epithelial Cell,Urine Many per lpf (None-Few); WBC,Urine 0-3 per hpf (0-3)
[2018-11-19 22:54] LABS: Troponin I 0.06 ng/mL (< 0.04)
[2018-11-19 23:08] LABS: Alanine Aminotransferase 5 Units/L (7-52); Albumin 3.4 g/dL (3.5-5.7); Albumin/Globulin Ratio 1.1 (1.1-2.2); Alkaline Phosphatase 64 Units/L (34-104); Aspartate Amino Transferase 15 Units/L (13-39); BUN/Creatinine Ratio 33 (6-26); Bilirubin,Direct 0.2 mg/dL (0.0-0.2); Bilirubin,Indirect 0.4 mg/dL (0.0-1.2); Bilirubin,Total 0.6 mg/dL (0.3-1.0); Blood Urea Nitrogen 31 mg/dL (8-23); Calcium 8.6 mg/dL (8.6-10.3); Carbon Dioxide 20 mEq/L (23-29); Chloride 109 mEq/L (98-107); Glucose 125 mg/dL (70-105); Magnesium 1.9 mg/dL (1.6-2.6); Osmolality,Calculated 292 (280-300); Potassium 3.5 mEq/L (3.5-5.1); Sodium 137 mEq/L (136-145); Total Protein 6.4 g/dL (6.4-8.9); eGFR For African Americans > 60 (> 60); eGFR For Non-African Americans > 60 (> 60)
--- NOTE | 2018-11-20 00:23 | Emergency Department Note ---
Disposition Clinical Impression: Community acquired pneumonia Qualifiers: Laterality: left Lung location: unspecified part of lung Qualified Code(s): J18.9 - Pneumonia, unspecified organism Disposition: Admitted As Inpatient Condition: Good [facility]: [facility]Primary Care Provider[facility] - Forms: ED Satisfaction Letter Time of Disposition: 00:16 General Adult HPI - General Chief complaint: ED Shortness of Breath/Dyspnea Stated complaint: low O2 Time Seen by Provider: 11/19/18 21:51 Source: patient, EMS Mode of arrival: EMS Limitations: altered mental status Nursing Notes Reviewed: Yes Vital Signs Reviewed: Yes - History of Present Illness Pain Scale: 0 - Related Data Home Medications Medication Instructions Recorded Confirmed Aspirin Enteric Coated [Aspirin EC] 81 mg PO DAILY 09/21/17 09/21/17 Brimonidine Tartrate [Alphagan P] 1 drop OP BID 09/21/17 09/21/17 Carbidopa/Levodopa 25/100 [Sinemet 1 tab PO QID 09/21/17 09/21/17 25/100] Cholecalciferol (D-3) [Vitamin D] 2,000 unit PO DAILY 09/21/17 09/21/17 Docusate Sodium [Colace] 200 mg PO BID PRN 09/21/17 09/21/17 Finasteride [Proscar] 5 mg PO DAILY 09/21/17 09/21/17 Furosemide [Lasix] 10 mg PO DAILY 09/21/17 09/21/17 Lactobacillus Combo No.10 1 cap PO DAILY 09/21/17 09/21/17 [Probiotic] Lactose-Reduced Food [Ensure Plus] 240 ml PO BID 09/21/17 09/21/17 Melatonin 10 mg PO HS 09/21/17 09/21/17 Quetiapine Fumarate [Seroquel] 12.5 mg PO QAM 09/21/17 09/21/17 Quetiapine Fumarate [Seroquel] 25 mg PO HS 09/21/17 09/21/17 Ropinirole HCl [Requip] 0.5 mg PO BID 09/21/17 09/21/17 Sennosides [Senna] 17.2 mg PO QPM PRN 09/21/17 09/21/17 Tamsulosin HCl [Flomax] 0.4 mg PO DAILY 09/21/17 09/21/17 Travoprost [Travatan Z] 1 drop OP HS 09/21/17 09/21/17 Trazodone HCl 100 mg PO HS 09/21/17 09/21/17 Previous Rx's Medication Instructions Recorded metFORMIN [Glucophage] 850 mg PO BIDWM #180 tablet 09/25/17 Ciprofloxacin [Cipro] 500 mg PO BID #8 tablet 09/27/17 Mirtazapine [Remeron] 7.5 mg PO HS #60 tablet 09/27/17 Thiamine (B-1) [Vitamin B-1] 200 mg PO DAILY #60 tablet 09/27/17 metroNIDAZOLE [Flagyl] 500 mg PO TID #12 tablet 09/27/17 Ondansetron ODT [Zofran ODT] 4 mg PO Q8HR #7 tab.rapdis 10/25/18 Allergies Allergy/AdvReac Type Severity Reaction Status Date / Time Buspirone AdvReac Intermediate Agitated Verified 09/21/17 17:38 lorazepam AdvReac Intermediate Agitated Verified 09/21/17 17:38 latanoprost AdvReac Mild eye redness Verified 09/21/17 17:38 levofloxacin AdvReac Mild Cramping Verified 09/21/17 17:38 of the Muscles divalproex sodium AdvReac Unknown Agitated Verified 09/21/17 17:38 Constitutional: Denies: fever, chills ENT ED: Denies: congestion Respiratory: Reports: cough, dyspnea, sputum production Gastrointestinal: Denies: nausea, vomiting, diarrhea Past Medical History - Past Medical History Medical history: Reports: hyperlipidemia, hypertension, other Psychiatric history: Reports: no psych history - Social History Smoking Status: Never smoker Smokeless Tobacco Status: No Alcohol use: Reports: none Drug use: Reports: none Physical Exam - General Limitations: altered mental status General appearance: alert Course Vital Signs Temperature 100.2 F H 11/19/18 21:53 Pulse Rate 102 11/19/18 21:53 Respiratory Rate 21 11/19/18 21:53 Blood Pressure 82/68 11/19/18 21:53 O2 Sat by Pulse Oximetry 96 11/19/18 21:53 Temperature 99 F 11/19/18 23:29 Pulse Rate 85 11/19/18 23:29 Respiratory Rate 22 11/19/18 23:29 Blood Pressure 95/78 11/19/18 23:29 O2 Sat by Pulse Oximetry 100 11/19/18 23:29 Oxygen Delivery Oxygen Delivery Nasal Cannula Medical Decision Making - Medical Records Medical records reviewed: Yes I reviewed the patient's medical records. - Lab Data Lab results reviewed: Yes I reviewed the patient's lab results. Result diagrams: 11/19/18 22:08 11/19/18 22:08 Lab Results 11/19/18 11/19/18 11/19/18 Range/Units 22:08 22:08 22:08 WBC 18.6 H (4.3-11.1) K/mcL RBC 4.13 L (4.19-5.50) M/mcL Hgb 13.2 (12.9-16.9) g/dL Hct 39.0 (37.5-50.1) % MCV 94.4 (83.0-100.0) fL MCH 32.0 (28.0-33.3) pg MCHC 33.8 (31.6-35.5) g/dL RDW 12.7 (11.5-14.5) % Plt Count 125 L (140-400) K/mcL MPV 11.4 (9.4-12.4) fL Immature Gran % 0.4 (0-4) % Seg Neutrophils % 86.0 % Lymphocytes % 4.7 % Monocytes % 8.5 % Eosinophils % 0.2 % Basophils % 0.2 % Neutrophils # 16.0 H (1.6-8.9) K/mcL Lymphocytes # 0.9 (0.6-4.6) K/mcL Monocytes # 1.6 H (0.0-1.3) K/mcL Eosinophils # 0.0 (0.0-0.6) K/mcL Basophils # 0.0 (0.0-0.2) K/mcL Sodium 137 (136-145) mEq/L Potassium 3.5 (3.5-5.1) mEq/L Chloride 109 H (98-107) mEq/L Carbon Dioxide 20 L (23-29) mEq/L BUN 31 H (8-23) mg/dL Creatinine 0.95 (0.70-1.30) mg/dL Est GFR ( Amer) > 60 (> 60) Est GFR (Non-Af Amer) > 60 (> 60) BUN/Creatinine Ratio 33 H (6-26) Glucose 125 H (70-105) mg/dL Calculated Osmolality 292 (280-300) Lactic Acid 1.3 (0.5-2.2) mmol/L Calcium 8.6 (8.6-10.3) mg/dL Phosphorus 2.0 L (2.7-4.5) mg/dL Magnesium 1.9 (1.6-2.6) mg/dL Total Bilirubin 0.6 (0.3-1.0) mg/dL Direct Bilirubin 0.2 (0.0-0.2) mg/dL Indirect Bilirubin 0.4 (0.0-1.2) mg/dL AST 15 (13-39) Units/L ALT 5 L (7-52) Units/L Alkaline Phosphatase 64 (34-104) Units/L Troponin I 0.06 H* (< 0.04) ng/mL Serum Total Protein 6.4 (6.4-8.9) g/dL Albumin 3.4 L (3.5-5.7) g/dL Globulin 3.0 (2.4-3.5) g/dL Albumin/Globulin Ratio 1.1 (1.1-2.2) Urine Color (Yellow) Urine Clarity (Clear) Urine pH (5.0-8.0) pH Units Ur Specific [place] (1.010-1.025) Urine Protein (Neg-Trace) mg/dL Urine Glucose (UA) (Normal) mg/dL Urine Ketones (Negative) mg/dL Urine Blood (Negative) Urine Nitrite (Negative) Urine Bilirubin (Negative) Urine Urobilinogen (Normal) mg/dL Ur Leukocyte Esterase (Negative) Urine Microscopic RBC (0-3) per hpf Urine Microscopic WBC (0-3) per hpf Ur Squamous Epith Cells (None-Few) per lpf Urine Bacteria (None-Few) per hpf Hyaline Casts (None-Few) per lpf Ur Culture Indicated? (NO) 11/19/18 Range/Units 22:18 WBC (4.3-11.1) K/mcL RBC (4.19-5.50) M/mcL Hgb (12.9-16.9) g/dL Hct (37.5-50.1) % MCV (83.0-100.0) fL MCH (28.0-33.3) pg MCHC (31.6-35.5) g/dL RDW (11.5-14.5) % Plt Count (140-400) K/mcL MPV (9.4-12.4) fL Immature Gran % (0-4) % Seg Neutrophils % % Lymphocytes % % Monocytes % % Eosinophils % % Basophils % % Neutrophils # (1.6-8.9) K/mcL Lymphocytes # (0.6-4.6) K/mcL Monocytes # (0.0-1.3) K/mcL Eosinophils # (0.0-0.6) K/mcL Basophils # (0.0-0.2) K/mcL Sodium (136-145) mEq/L Potassium (3.5-5.1) mEq/L Chloride (98-107) mEq/L Carbon Dioxide (23-29) mEq/L BUN (8-23) mg/dL Creatinine (0.70-1.30) mg/dL Est GFR ( Amer) (> 60) Est GFR (Non-Af Amer) (> 60) BUN/Creatinine Ratio (6-26) Glucose (70-105) mg/dL Calculated Osmolality (280-300) Lactic Acid (0.5-2.2) mmol/L Calcium (8.6-10.3) mg/dL Phosphorus (2.7-4.5) mg/dL Magnesium (1.6-2.6) mg/dL Total Bilirubin (0.3-1.0) mg/dL Direct Bilirubin (0.0-0.2) mg/dL Indirect Bilirubin (0.0-1.2) mg/dL AST (13-39) Units/L ALT (7-52) Units/L Alkaline Phosphatase (34-104) Units/L Troponin I (< 0.04) ng/mL Serum Total Protein (6.4-8.9) g/dL Albumin (3.5-5.7) g/dL Globulin (2.4-3.5) g/dL Albumin/Globulin Ratio (1.1-2.2) Urine Color Dark Yellow (Yellow) Urine Clarity Clear (Clear) Urine pH 5.0 (5.0-8.0) pH Units Ur Specific [place] 1.021 (1.010-1.025) Urine Protein Negative (Neg-Trace) mg/dL Urine Glucose (UA) Normal (Normal) mg/dL Urine Ketones Trace H (Negative) mg/dL Urine Blood Negative (Negative) Urine Nitrite Negative (Negative) Urine Bilirubin Small H (Negative) Urine Urobilinogen Normal (Normal) mg/dL Ur Leukocyte Esterase Trace H (Negative) Urine Microscopic RBC 0-3 (0-3) per hpf Urine Microscopic WBC 0-3 (0-3) per hpf Ur Squamous Epith Cells Many H (None-Few) per lpf Urine Bacteria None Seen (None-Few) per hpf Hyaline Casts None Seen (None-Few) per lpf Ur Culture Indicated? YES A (NO) - Radiology Data Radiology results reviewed: Yes I reviewed the patient's radiology results. Chest X-Ray 11/19/18 23:03 IMPRESSION: Evidence of probable retrocardiac airspace disease, not well evaluated, suggesting atelectasis versus pneumonia versus aspiration. D/ / Vadim Herrera MD / Vadim Herrera MD Interpreting Provider: Vadim Herrera MD - EKG Data EKG #1 EKG attestation: Yes I reviewed and interpreted this EKG. EKG results narrative: EKG showed sinus tachycardia with ventricular rate of 101. PAC. Right bundle branch block. No significant change from prior EKG dated 10/08/2018. Critical Care Time Critical Care Time: Yes Total Critical Care Time: 45 Attestation: Critical care performed: Time is exclusive of separately billable procedures. Time includes: direct patient care, patient reassessment, coordination of patient care, interpretation of data (laboratory data, radiology data, and respiratory data), review of patient's medical records, medical consultation and documentation of patient care. Procedures included in critical care time: Procedures excluded from critical care time: Attestation Statement - Attestation Attestation: I, Himanshu Hernandez MD, personally evaluated this patient and discussed their management with the resident physician. I reviewed the resident's note and agree with the documented findings, medical decision making, and plan of care. I reviewed the residents documentation and agree with the residents assessment and plan of care. I have personally had face to face time with the patient. I personally supervised and was present for the tang/critical portions of the following procedures completed by the resident: EKG interpretation. 73-year-old male presents to the emergency department with complaining of possible aspiration. She states he has had some cough and congestion for the past several days but it has been getting better. This afternoon around 4 PM he got choked on some Ensure and she thinks he may have aspirated. Later this evening he developed a fever up to 102. The home health nurse came and checked on him and reported his oxygen saturation was low any to come here for evaluation. Patient is a DNR CCA. He is unable to answer questions to provide any significant history or review of systems. On examination patient is a well-developed well-nourished elderly male in no acute distress. He is alert. No cyanosis or diaphoresis. Sounds are decreased but equal bilaterally. No rales or wheezes noted. Heart regular rate and rhythm. Abdomen soft with normal bowel sounds and no obvious tenderness. No pedal edema. EKG showed sinus tachycardia with ventricular rate of 101. PAC. Right bundle branch block. No significant change from prior EKG dated 10/08/2018. Chest x-ray shows a left retrocardiac opacity. Labs reviewed. Leukocytosis. Troponin elevated but baseline for patient. Lactic acid 1.3. Patient received IV fluid bolus. Blood cultures obtained. He was started on IV antibiotics. The hospitalist, Dr. Kang, was consulted and accepted admission of the patient.
[2018-11-20] MEDS ORDERED: Acetaminophen 325 MG TABLET PO PRN (02:36)
[2018-11-20] MEDS ORDERED: Ipratropium/Albuterol Neb 3 ML IH PRN (02:36)
[2018-11-20] MEDS ORDERED: Ondansetron 4 MG/2 ML VIAL IVP PRN (02:36)
[2018-11-20] MEDS ORDERED: Naloxone 0.4 MG/ML INJ IVP PRN (02:36)
[2018-11-20] MEDS ORDERED: Vancomycin (wt based) 1,000 MG VIAL IVPB SCH (03:00)
[2018-11-20] MEDS: 0.9 % Sodium Chloride w KCl 20 MEQ/1,000 ML MLS IVC SCH ×2 (03:16→09:52)
--- NOTE | 2018-11-20 05:43 | Internal Med History&Physical ---
Date of Encounter: 11/20/18 Time of Encounter: 00:25 Internal Medicine - H&P: HPI Chief complaint: cough, fever, SOB Admitted From: Emergency Dept Plans for Post Hospital Care: Home History of present illness: Mr. Duran is a 73 year old male who presents to the ER tonight with complaints of cough, vomiting, questionable aspiration, fever, and shortness of breath. Workup in ER revealed patient to have evidence of pneumonia, sepsis, and mild respiratory distress. He was fluid resuscitated in the ER, had cultures drawn, and was started on antibiotics. He was then admitted to hospitalist service. Upon my assessment of the patient in the ER, patient is nonverbal. History is exclusively obtained from his who was present at the bedside. He has some mild tachypnea and oxygen requirement, but he is in otherwise no acute respiratory distress. His blood pressure has improved with the fluid resuscitation. His fevers have defervesced with Tylenol administration. Patient has a history of Parkinson's disease and old traumatic brain injury. She states he has been coughing and not eating well the last several days. He then vomited and aspirated earlier today. He has had recurrent bouts of pneumonia in the past. He has not been hospitalized recently, but he has had recurrent bouts of pneumonia according to his . He is usually sedentary and bedbound most of the time. He seldom communicates verbally. I discussed CODE STATUS with patient's , and she informed me that he is enrolled in Hospice. I assumed that he would be DNR-Comfort Care only, but she stated that she preferred and he would want DNR Arrest with short-term intubation if necessary. Upon discharge, she states she would like to be re- enrolled in Hospice. For now, he appears to be stable from a respiratory standpoint. Hemodynamically, he seems to have improved with fluid boluses. 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 Psychiatric history: no psych history - Past Surgical History Surgical History: other Additional surgical history: brain surgery (1977), stomach bypass - Social History Smoking Status: Never smoker Smokeless Tobacco Status: No Alcohol use: none Drug use: none Current living situation: Home, With Family Activity Level: Bed bound Recent Out of Country Travel Within the Last 8 Weeks: No - Family History Mother History Unknown: Yes Living Status: Father History Unknown: Yes Living Status: Internal Medicine - H&P: Meds Carbidopa/Levodopa 25/100 [Sinemet 25/100] 1 tab PO QID 09/21/17 [History] Docusate Sodium [Colace] 200 mg PO BID PRN 09/21/17 [History] Finasteride [Proscar] 5 mg PO DAILY 09/21/17 [History] Furosemide [Lasix] 10 mg PO DAILY 09/21/17 [History] Lactose-Reduced Food [Ensure Plus] 240 ml PO BID 09/21/17 [History] Melatonin 10 mg PO HS 09/21/17 [History] Ropinirole HCl [Requip] 0.5 mg PO BID 09/21/17 [History] Sennosides [Senna] 17.2 mg PO QPM PRN 09/21/17 [History] Tamsulosin HCl [Flomax] 0.4 mg PO DAILY 09/21/17 [History] Travoprost [Travatan Z] 1 drop OP HS 09/21/17 [History] Mirtazapine [Remeron] 7.5 mg PO HS #60 tablet 09/27/17 [Rx] Nitrofurantoin (BID) [Macrobid] 100 mg PO DAILY 11/20/18 [History] Timolol Maleate 0.5% 1 drop OP DAILY 11/20/18 [History] Allergy/AdvReac Type Severity Reaction Status Date / Time Buspirone AdvReac Intermediate Agitated Verified 09/21/17 17:38 lorazepam AdvReac Intermediate Agitated Verified 09/21/17 17:38 latanoprost AdvReac Mild eye redness Verified 09/21/17 17:38 levofloxacin AdvReac Mild Cramping Verified 09/21/17 17:38 of the Muscles divalproex sodium AdvReac Unknown Agitated Verified 09/21/17 17:38 ROS unobtainable: due to mental status All Systems PM: As per in [facility]; unable to obtain from patient - Constitutional Vitals: Temp Pulse Resp BP Pulse Ox 97.9 F 69 16 100/67 95 11/20/18 04:49 11/20/18 04:49 11/20/18 04:49 11/20/18 04:49 11/20/18 04:49 General appearance: Present: A&O X 0, no acute distress. Absent: answers questions appropriately Exam: non-verbal; non-communicative -- baseline per - Head Head exam: Present: atraumatic - Eye Eye exam: Present: PERRL. Absent: scleral icterus - ENT ENT exam: Present: mucous membranes dry, normal exam, normal oropharynx - Neck Neck exam general surgery: Present: full ROM, supple, trachea midline. Absent: lymphadenopathy, tenderness, nuchal rigidity, thyromegaly - Respiratory Respiratory exam: Present: prolonged expiratory phase, rales, rhonchi. Absent: chest wall tenderness, respiratory distress, wheezes, tachypnea - Cardiovascular Cardiovascular exam: Present: +S1, +S2, systolic murmur (grade 3). Absent: di astolic murmur - GI/Abdominal GI/Abdominal exam: Present: normal bowel sounds, soft. Absent: guarding, hepatomegaly, mass, rebound, splenomegaly, tenderness - Extremities Exam Extremities exam: Present: warm, radial pulses palpable and symmetrical. Absent: normal capillary refill (delayed at roughly 4 seconds), tenderness - Back Exam Back exam: Absent: CVA tenderness (L), CVA tenderness (R) - Neurological Exam Neurological exam: Present: alert. Absent: oriented X3, reflexes normal - Psychiatric Psychiatric exam: Present: flat affect. Absent: agitated - Skin Skin exam: Present: dry, intact, warm Internal Med - H&P Results - Labs CBC & Chem 7: 11/19/18 22:08 11/19/18 22:08 Labs: Short CBC 11/19/18 Range/Units 22:08 WBC 18.6 H (4.3-11.1) K/mcL Hgb 13.2 (12.9-16.9) g/dL Hct 39.0 (37.5-50.1) % Plt Count 125 L (140-400) K/mcL Neutrophils # 16.0 H (1.6-8.9) K/mcL BMP 11/19/18 22:08 Sodium 137 Potassium 3.5 Chloride 109 H Carbon Dioxide 20 L BUN 31 H Creatinine 0.95 Glucose 125 H Calcium 8.6 Cardiac Enzymes 11/19/18 Range/Units 22:08 Troponin I 0.06 H* (< 0.04) ng/mL Liver Function 11/19/18 Range/Units 22:08 Total Bilirubin 0.6 (0.3-1.0) mg/dL Direct Bilirubin 0.2 (0.0-0.2) mg/dL AST 15 (13-39) Units/L ALT 5 L (7-52) Units/L Alkaline Phosphatase 64 (34-104) Units/L Albumin 3.4 L (3.5-5.7) g/dL Urine 11/19/18 Range/Units 22:18 Urine Color Dark Yellow (Yellow) Urine Clarity Clear (Clear) Urine pH 5.0 (5.0-8.0) pH Units Ur Specific [place] 1.021 (1.010-1.025) Urine Protein Negative (Neg-Trace) mg/dL Urine Glucose (UA) Normal (Normal) mg/dL - EKG Data -: EKG Interpreted by Myself - EKG Data Prior EKG available for review: no EKG comments: 11/20/18 05:49 sinus tachycardia; RBBB - Impressions ITS Impressions Chest X-Ray 11/19/18 23:03 IMPRESSION: Evidence of probable retrocardiac airspace disease, not well evaluated, suggesting atelectasis versus pneumonia versus aspiration. D/ / Vadim Herrera MD / Vadim Herrera MD Interpreting Provider: Vadim Herrera MD - Diagnostic Studies Chest x-ray Status: image reviewed by me (left sided infiltrate) - Assessment and Plan (1) Aspiration pneumonia Current Visit: Yes Status: Acute Assessment and plan: 1. Blood cultures obtained in ER. 2. Likely unable to collect sputum sample, but will try. 3. Will order IV antibiotics to include Vancomycin, Zosyn, and Flagyl. 4. Oxygen support and aerosols as needed for support. Qualifiers: Aspiration pneumonia type: due to regurgitated food Laterality: left Lung location: lower lobe of lung Qualified Code(s): J69.0 - Pneumonitis due to inhalation of food and vomit (2) Sepsis Current Visit: Yes Status: Acute Assessment and plan: 1. Fluid resuscitated in ER. 2. Continue IVF, trend lactates, and monitor on telemetry and hemodynamically. 3. IV antibiotics as above. 4. Short term intubation and pressors OK per discussions with . Qualifiers: Sepsis type: sepsis due to unspecified organism Sepsis acute organ dysfunction status: without acute organ dysfunction Qualified Code(s): A41.9 - Sepsis, unspecified organism (3) TBI (traumatic brain injury) Current Visit: Yes Status: Chronic Assessment and plan: 1. Will order head CT to assess for possible shunt malfunction. Qualifiers: Encounter type: sequela Loss of consciousness presence/duration: without LOC Qualified Code(s): S06.9X0S - Unspecified intracranial injury without loss of consciousness, sequela (4) Parkinson disease Current Visit: Yes Status: Chronic Assessment and plan: 1. Resume home meds as appropriate once med list verified. (5) DVT prophylaxis Current Visit: Yes Status: Acute Assessment and plan: 1. Heparin SQ. - Time Spent With Patient Total time spent is greater than 50% in coordination of care (as documented) at patient's floor/unit and/or counseling patient:
[2018-11-20] MEDS ORDERED: MetroNIDAZOLE 500 MG/100 ML 500 MG/100 ML BAG IVPB SCH (06:00)
[2018-11-20] MEDS: *HR* Heparin 5,000 UNIT/ML VIAL SQ SCH ×2 (06:33→17:01)
[2018-11-20 06:44] LABS: Basophils % 0.2 %; Eosinophils # 0.1 K/mcL (0.0-0.6); Eosinophils % 0.3 %; Hematocrit 35.7 % (37.5-50.1); Hemoglobin 11.7 g/dL (12.9-16.9); Immature Granulocytes % 0.3 % (0-4); Lymphocytes # 1.6 K/mcL (0.6-4.6); Lymphocytes % 8.5 %; Mean Corpuscular HGB Conc 32.8 g/dL (31.6-35.5); Mean Corpuscular Hemoglobin 32.4 pg (28.0-33.3); Mean Corpuscular Volume 98.9 fL (83.0-100.0); Mean Platelet Volume 11.5 fL (9.4-12.4); Monocytes # 1.5 K/mcL (0.0-1.3); Neutrophils # 15.8 K/mcL (1.6-8.9); Platelet Count 108 K/mcL (140-400); Red Blood Count 3.61 M/mcL (4.19-5.50); Red Cell Distribution Width 12.8 % (11.5-14.5); Segmented Neutrophils % 82.7 %; White Blood Count 19.1 K/mcL (4.3-11.1)
[2018-11-20 06:49] LABS: INR 1.3; Prothrombin Time 15.2 Seconds (9.4-12.1)
[2018-11-20 06:52] LABS: Activated Partial Thrombo Time 38.2 Seconds (26.0-36.0)
[2018-11-20] MEDS ORDERED: Aminoglycoside Consult 1 EACH MC ONE (06:56)
--- NOTE | 2018-11-20 07:18 | Event Note ---
Date of Encounter: 11/20/18 Time of Encounter: 07:18 Patient seen and examined this morning at bedside. Admitted overnight due to aspiration pneumonia. at bedside. Patient still nonverbal and not a will to offer any complaints. Crackles at bases bilaterally. No pedal edema. RRR. Saturating well on room air. Patient was on hospice but wanted something treatable to be addressed. Imaging suggestive of aspiration pneumonia. Patient also had swallowing difficulties. We will obtain speech evaluation. mentioned he did not want invasive nutrition. Understands we will need waiver for reconsidering hospice if continues to aspirate. Continue empiric vancomycin and Zosyn. Obtain MRSA screening. Discontinue metronidazole. Troponin likely demand. Continue to trend. did not want to consider any aggressive management or cardiac intervention. Continue IV fluids for now.
[2018-11-20 07:19] LABS: Alanine Aminotransferase 8 Units/L (7-52); Albumin 3.1 g/dL (3.5-5.7); Albumin/Globulin Ratio 1.2 (1.1-2.2); Alkaline Phosphatase 63 Units/L (34-104); Aspartate Amino Transferase 13 Units/L (13-39); BUN/Creatinine Ratio 33 (6-26); Bilirubin,Total 0.5 mg/dL (0.3-1.0); Blood Urea Nitrogen 27 mg/dL (8-23); Calcium 7.9 mg/dL (8.6-10.3); Carbon Dioxide 20 mEq/L (23-29); Chloride 112 mEq/L (98-107); Globulin 2.6 g/dL (2.4-3.5); Glucose 104 mg/dL (70-105); Magnesium 1.9 mg/dL (1.6-2.6); Osmolality,Calculated 297 (280-300); Potassium 3.8 mEq/L (3.5-5.1); Sodium 141 mEq/L (136-145); Total Protein 5.7 g/dL (6.4-8.9); Troponin I 0.08 ng/mL (< 0.04); eGFR For African Americans > 60 (> 60); eGFR For Non-African Americans > 60 (> 60)
[2018-11-20] MEDS: Piperacillin/Tazobactam 3.375 GM in 0.9 % Sodium Chloride Mini Bag 100 ML IVPB SCH ×2 (09:50→17:00)
[2018-11-20] MEDS: Carbidopa/Levodopa 25/100 TABLET PO SCH ×4 (09:51→21:50)
--- NOTE | 2018-11-20 19:46 | Electrocardiograph Report ---
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
[2018-11-20] MEDS: TRAVOPROST OPTH OP SCH (21:50)
[2018-11-21] MEDS: Piperacillin/Tazobactam 3.375 GM in 0.9 % Sodium Chloride Mini Bag 100 ML IVPB SCH ×2 (00:51→08:00)
[2018-11-21] MEDS: *HR* Heparin 5,000 UNIT/ML VIAL SQ SCH ×2 (05:25→17:53)
[2018-11-21 06:00] LABS: Basophils % 0.3 %; Eosinophils # 0.2 K/mcL (0.0-0.6); Eosinophils % 1.7 %; Hematocrit 35.6 % (37.5-50.1); Hemoglobin 11.7 g/dL (12.9-16.9); Immature Granulocytes % 0.4 % (0-4); Immature Platelets 7.9 % (1.1-6.1); Lymphocytes # 1.2 K/mcL (0.6-4.6); Lymphocytes % 8.8 %; Mean Corpuscular HGB Conc 32.9 g/dL (31.6-35.5); Mean Corpuscular Hemoglobin 32.5 pg (28.0-33.3); Mean Corpuscular Volume 98.9 fL (83.0-100.0); Mean Platelet Volume 12.4 fL (9.4-12.4); Monocytes # 1.1 K/mcL (0.0-1.3); Monocytes % 8.1 %; Neutrophils # 10.7 K/mcL (1.6-8.9); Red Cell Distribution Width 13.1 % (11.5-14.5); Segmented Neutrophils % 80.7 %; White Blood Count 13.3 K/mcL (4.3-11.1)
[2018-11-21 06:15] LABS: Platelet Count 94 K/mcL (140-400)
[2018-11-21 06:17] LABS: Platelet Estimate Slight Decrease (Normal)
[2018-11-21 06:20] LABS: Troponin I 0.07 ng/mL (< 0.04)
[2018-11-21 06:29] LABS: BUN/Creatinine Ratio 28 (6-26); Blood Urea Nitrogen 23 mg/dL (8-23); Calcium 8.2 mg/dL (8.6-10.3); Carbon Dioxide 18 mEq/L (23-29); Chloride 110 mEq/L (98-107); Glucose 76 mg/dL (70-105); Osmolality,Calculated 290 (280-300); Potassium 3.9 mEq/L (3.5-5.1); Sodium 139 mEq/L (136-145); eGFR For African Americans > 60 (> 60); eGFR For Non-African Americans > 60 (> 60)
[2018-11-21] MEDS: Carbidopa/Levodopa 25/100 TABLET PO SCH ×4 (08:00→21:57)
--- NOTE | 2018-11-21 11:44 | Internal Med Progress Note ---
Hospitalist Progress Note - Encounter Date of Encounter: 11/21/18 Time of Encounter: 11:36 - Subjective Interval History: Patient with interval improvement in breathing. No complaints this morning. Dry cough but not bothersome. - Exam Vitals: Temp Pulse Resp BP Pulse Ox 98.1 F 82 20 145/91 95 11/21/18 11:19 11/21/18 11:19 11/21/18 11:19 11/21/18 11:19 11/21/18 11:19 Exam: General: Ill-appearing and in no acute distress HEENT: No erythema of posterior pharynx. No exudates. Lymphatics: No mandibular or cervical lymphadenopathy Cardiovascular: RRR. No murmurs. No chest wall tenderness. Lungs: Diffuse rhonchi. Regular chest rise. Abdomen: Non-tender. No rebound or gaurding. Nl bowel sounds. Extremities: No edema. 2+ pulses radial and pedal pulses Skin: No rahses, abrasions, or contusions. Nl cap refill. Psych: Nl attention. A&Ox3 Neuro: angle bender II-XII intact. 5/5 strength. Sensation to light touch and pinprick intact. - Assessment and Plan (1) Sepsis Current Visit: Yes Status: Acute Assessment and Plan: Patient with history of advanced dementia presented with acute hypoxic respiratory failure in the setting of sepsis (leukocytosis to 18.6, RR 22), diffuse rhonchi on physical exam, and chest x-ray with concern for aspiration pneumonia. -Likely aspiration event in high risk patient with dementia -Improving with broad-spectrum antibiotics -Evaluated by FREIGHT FORWARDER when patient was acutely ill and recommended only thin liquids with medications and will reassess -Patient with improvement in breathing and leukocytosis today PLAN: - Zosyn --> Cefdinir and Flagyl - F/u cultures - Repeat eval by FREIGHT FORWARDER today (2) Acute respiratory failure with hypoxia Current Visit: Yes Status: Acute Assessment and Plan: See above (3) Aspiration pneumonia Current Visit: Yes Status: Acute Assessment and Plan: See above (4) TBI (traumatic brain injury) Current Visit: Yes Status: Chronic Assessment and Plan: Resulting in dementia DVT Prophylaxis: Heparin Internal Medicine: Result - Labs CBC & Chem 7: 11/21/18 05:16 11/21/18 05:16 Labs: Short CBC 11/21/18 Range/Units 05:16 WBC 13.3 H (4.3-11.1) K/mcL Hgb 11.7 L (12.9-16.9) g/dL Hct 35.6 L (37.5-50.1) % Plt Count 94 L (140-400) K/mcL Neutrophils # 10.7 H (1.6-8.9) K/mcL BMP 11/21/18 05:16 Sodium 139 Potassium 3.9 Chloride 110 H Carbon Dioxide 18 L BUN 23 Creatinine 0.83 Glucose 76 Calcium 8.2 L Cardiac Enzymes 11/20/18 11/21/18 Range/Units 12:31 05:16 Troponin I 0.07 H* 0.07 H* (< 0.04) ng/mL - ABG Interpretation ABG results: PT/INR, D-dimer PT 15.2 Seconds (9.4-12.1) H 11/20/18 06:27 Consult Discharge Plan - Plan [facility]errals: [facility] [Primary Care Provider] - (1) Sepsis Qualifiers: Sepsis type: sepsis due to unspecified organism Sepsis acute organ dysfunction status: without acute organ dysfunction Qualified Code(s): A41.9 - Sepsis, unspecified organism (3) Aspiration pneumonia Qualifiers: Aspiration pneumonia type: due to regurgitated food Laterality: left Lung location: lower lobe of lung Qualified Code(s): J69.0 - Pneumonitis due to inhalation of food and vomit (4) TBI (traumatic brain injury) Qualifiers: Encounter type: sequela Loss of consciousness presence/duration: without LOC Qualified Code(s): S06.9X0S - Unspecified intracranial injury without loss of consciousness, sequela
--- NOTE | 2018-11-21 16:28 | Electrocardiograph Report ---
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
[2018-11-21] MEDS: metroNIDAZOLE 500 MG TABLET PO SCH ×2 (16:49→17:52)
[2018-11-21] MEDS: Cefdinir 300 MG CAPSULE PO SCH (17:53)
[2018-11-21] MEDS: TRAVOPROST OPTH OP SCH (21:57)
[2018-11-22] MEDS: Cefdinir 300 MG CAPSULE PO SCH ×2 (06:06→17:57)
[2018-11-22] MEDS: *HR* Heparin 5,000 UNIT/ML VIAL SQ SCH ×2 (06:06→17:57)
[2018-11-22 06:07] LABS: Hematocrit 32.4 % (37.5-50.1); Hemoglobin 10.8 g/dL (12.9-16.9); Mean Corpuscular HGB Conc 33.3 g/dL (31.6-35.5); Mean Corpuscular Hemoglobin 31.8 pg (28.0-33.3); Mean Corpuscular Volume 95.3 fL (83.0-100.0); Mean Platelet Volume 11.6 fL (9.4-12.4); Platelet Count 110 K/mcL (140-400); Red Cell Distribution Width 12.8 % (11.5-14.5); White Blood Count 7.2 K/mcL (4.3-11.1)
[2018-11-22 06:58] LABS: BUN/Creatinine Ratio 30 (6-26); Blood Urea Nitrogen 23 mg/dL (8-23); Calcium 8.3 mg/dL (8.6-10.3); Carbon Dioxide 21 mEq/L (23-29); Chloride 109 mEq/L (98-107); Glucose 84 mg/dL (70-105); Osmolality,Calculated 293 (280-300); Potassium 3.5 mEq/L (3.5-5.1); Sodium 140 mEq/L (136-145); eGFR For African Americans > 60 (> 60); eGFR For Non-African Americans > 60 (> 60)
[2018-11-22] MEDS ORDERED: Sennosides 8.6 MG TABLET PO PRN (07:38)
[2018-11-22] MEDS: Nitrofurantoin (BID) 100 MG CAPSULE PO SCH (09:55)
[2018-11-22] MEDS: Finasteride 5 MG TABLET PO SCH (09:55)
[2018-11-22] MEDS: metroNIDAZOLE 500 MG TABLET PO SCH ×3 (09:55→21:50)
[2018-11-22] MEDS: Lactulose Oral Soln 20 GM/30 ML UDC PO SCH ×2 (09:56→21:50)
[2018-11-22] MEDS: Furosemide 20 MG TABLET PO SCH (09:56)
[2018-11-22] MEDS: Carbidopa/Levodopa 25/100 TABLET PO SCH ×4 (09:56→21:50)
[2018-11-22] MEDS: rOPINIRole 1 MG TABLET PO SCH ×2 (09:56→21:50)
--- NOTE | 2018-11-22 13:15 | Internal Med Progress Note ---
Hospitalist Progress Note - Encounter Date of Encounter: 11/22/18 Time of Encounter: 13:12 - Subjective Interval History: Patient doing much better per hospital staff, however, feels that he is still lethargic and would like to keep him in the hospital 1 more day. Also anxious and has lots of questions about discharging back to hospice. - Exam Vitals: Temp Pulse Resp BP Pulse Ox 98.0 F 72 24 113/74 95 11/22/18 10:41 11/22/18 10:41 11/22/18 10:41 11/22/18 10:41 11/22/18 10:41 Exam: General: Ill-appearing and in no acute distress HEENT: No erythema of posterior pharynx. No exudates. Lymphatics: No mandibular or cervical lymphadenopathy Cardiovascular: RRR. No murmurs. No chest wall tenderness. Lungs: Diffuse rhonchi. Regular chest rise. Abdomen: Non-tender. No rebound or gaurding. Nl bowel sounds. Extremities: No edema. 2+ pulses radial and pedal pulses Skin: No rahses, abrasions, or contusions. Nl cap refill. Psych: Nl attention. A&Ox3 Neuro: community engagement representative II-XII intact. 5/5 strength. Sensation to light touch and pinprick intact. - Assessment and Plan (1) Sepsis Current Visit: Yes Status: Acute Assessment and Plan: Patient with history of advanced dementia presented with acute hypoxic respiratory failure in the setting of sepsis (leukocytosis to 18.6, RR 22), diffuse rhonchi on physical exam, and chest x-ray with concern for aspiration pneumonia. -Likely aspiration event in high risk patient with dementia -Improving with broad-spectrum antibiotics -Evaluated by SUPPLY CRIB ATTENDANT when patient was acutely ill and recommended only thin liquids with medications and will reassess -Sepsis is now resolved. No fevers or leukocytosis. Breathing well on room air. -Plan for discharge tomorrow morning when hospice can be set up and the patient can be transported home PLAN: - Cefdinir and Flagyl D4/5 of ABs - F/u cultures - Repeat eval by SUPPLY CRIB ATTENDANT today - placed patient back on general diet (2) Acute respiratory failure with hypoxia Current Visit: Yes Status: Acute Assessment and Plan: See above (3) Aspiration pneumonia Current Visit: Yes Status: Acute Assessment and Plan: See above (4) TBI (traumatic brain injury) Current Visit: Yes Status: Chronic Assessment and Plan: Resulting in dementia DVT Prophylaxis: Heparin Internal Medicine: Result - Labs CBC & Chem 7: 11/22/18 05:45 11/22/18 05:45 Labs: Short CBC 11/22/18 Range/Units 05:45 WBC 7.2 (4.3-11.1) K/mcL Hgb 10.8 L (12.9-16.9) g/dL Hct 32.4 L (37.5-50.1) % Plt Count 110 L (140-400) K/mcL BMP 11/22/18 05:45 Sodium 140 Potassium 3.5 Chloride 109 H Carbon Dioxide 21 L BUN 23 Creatinine 0.77 Glucose 84 Calcium 8.3 L - ABG Interpretation ABG results: PT/INR, D-dimer PT 15.2 Seconds (9.4-12.1) H 11/20/18 06:27 Consult Discharge Plan - Plan Referrals: [facility] [Primary Care Provider] - (1) Sepsis Qualifiers: Sepsis type: sepsis due to unspecified organism Sepsis acute organ dysfunction status: without acute organ dysfunction Qualified Code(s): A41.9 - Sepsis, unspecified organism (3) Aspiration pneumonia Qualifiers: Aspiration pneumonia type: due to regurgitated food Laterality: left Lung location: lower lobe of lung Qualified Code(s): J69.0 - Pneumonitis due to inhalation of food and vomit (4) TBI (traumatic brain injury) Qualifiers: Encounter type: sequela Loss of consciousness presence/duration: without LOC Qualified Code(s): S06.9X0S - Unspecified intracranial injury without loss of consciousness, sequela
[2018-11-22] MEDS ORDERED: Mirtazapine 15 MG TABLET PO SCH (21:00)
[2018-11-22] MEDS ORDERED: Melatonin 3 MG TABLET PO SCH (21:00)
[2018-11-22] MEDS: TRAVOPROST OPTH OP SCH (21:51)
[2018-11-23 04:53] LABS: Hematocrit 35.1 % (37.5-50.1); Hemoglobin 11.9 g/dL (12.9-16.9); Mean Corpuscular HGB Conc 33.9 g/dL (31.6-35.5); Mean Corpuscular Hemoglobin 32.7 pg (28.0-33.3); Mean Corpuscular Volume 96.4 fL (83.0-100.0); Mean Platelet Volume 11.9 fL (9.4-12.4); Platelet Count 125 K/mcL (140-400); Red Blood Count 3.64 M/mcL (4.19-5.50); Red Cell Distribution Width 12.6 % (11.5-14.5); White Blood Count 6.7 K/mcL (4.3-11.1)
[2018-11-23 05:11] LABS: BUN/Creatinine Ratio 27 (6-26); Blood Urea Nitrogen 20 mg/dL (8-23); Calcium 8.5 mg/dL (8.6-10.3); Carbon Dioxide 23 mEq/L (23-29); Chloride 108 mEq/L (98-107); Glucose 85 mg/dL (70-105); Osmolality,Calculated 288 (280-300); Potassium 3.7 mEq/L (3.5-5.1); Sodium 138 mEq/L (136-145); eGFR For African Americans > 60 (> 60); eGFR For Non-African Americans > 60 (> 60)
[2018-11-23] MEDS: *HR* Heparin 5,000 UNIT/ML VIAL SQ SCH (06:37)
[2018-11-23] MEDS: Cefdinir 300 MG CAPSULE PO SCH (06:37)
[2018-11-23 07:05] VITALS: BP 183/61
[2018-11-23] MEDS: Lactulose Oral Soln 20 GM/30 ML UDC PO SCH (08:49)
[2018-11-23] MEDS: Finasteride 5 MG TABLET PO SCH (08:49)
[2018-11-23] MEDS: Nitrofurantoin (BID) 100 MG CAPSULE PO SCH (08:50)
[2018-11-23] MEDS: metroNIDAZOLE 500 MG TABLET PO SCH (08:50)
[2018-11-23] MEDS: Furosemide 20 MG TABLET PO SCH (08:50)
[2018-11-23] MEDS: rOPINIRole 1 MG TABLET PO SCH (08:50)
[2018-11-23] MEDS: Carbidopa/Levodopa 25/100 TABLET PO SCH (08:50)
--- NOTE | 2018-11-23 10:24 | Discharge Summary ---
Orders not resulted at time of discharge: Pending orders 11/19/18 22:08 Culture,Blood [BC] Stat Date of Encounter: 11/23/18 Time of Encounter: 10:21 - Discharge Diagnosis (1) Sepsis Priority: Primary Status: Acute Qualifiers: Sepsis type: sepsis due to unspecified organism Sepsis acute organ dysfunction status: without acute organ dysfunction Qualified Code(s): A41.9 - Sepsis, unspecified organism (2) Acute respiratory failure with hypoxia Priority: Secondary Status: Acute (3) Aspiration pneumonia Priority: Secondary Status: Acute Qualifiers: Aspiration pneumonia type: due to regurgitated food Laterality: left Lung location: lower lobe of lung Qualified Code(s): J69.0 - Pneumonitis due to inhalation of food and vomit (4) TBI (traumatic brain injury) Priority: Secondary Status: Chronic Qualifiers: Encounter type: sequela Loss of consciousness presence/duration: without LOC Qualified Code(s): S06.9X0S - Unspecified intracranial injury without loss of consciousness, sequela Hospital course: Mr. Duran is a 73 year old male with history of advanced dementia 2/2 a remote TBI presented with acute hypoxic respiratory failure in the setting of sepsis from aspiration pneumonia. Patient was previously on hospice but wanted to treat if cause of decline was rapidly reversible, which it was. Patient improved appropriately with antibiotics. WORSHIP PASTOR worked with patient on swallow during hospital stay and progressed back to normal textures by the time of discharge. He will f/u with PCP. - Time Spent with Patient Total time spent providing and/or coordinating discharge services: - Discharge Medications Prescriptions: New metroNIDAZOLE [Flagyl] 500 mg PO TID #5 tablet Cefdinir [Omnicef] 300 mg PO Q12HR #3 capsule Continued Ropinirole HCl [Requip] 0.5 mg PO BID Melatonin 10 mg PO HS Docusate Sodium [Colace] 200 mg PO BID PRN PRN Reason: Constipation Carbidopa/Levodopa 25/100 [Sinemet 25/100] 1 tab PO QID Travoprost [Travatan Z] 1 drop OP HS Tamsulosin HCl [Flomax] 0.4 mg PO DAILY Lactose-Reduced Food [Ensure Plus] 237 ml PO BID Furosemide [Lasix] 10 mg PO DAILY Finasteride [Proscar] 5 mg PO DAILY Mirtazapine [Remeron] 7.5 mg PO HS #60 tablet Timolol Maleate 0.5% 1 drop OP QAM Nitrofurantoin (BID) [Macrobid] 100 mg PO DAILY Sennosides [Senna] 17.2 mg PO QPM PRN PRN Reason: Constipation Lactulose [Enulose] 30 ml PO BID Home Medications: Carbidopa/Levodopa 25/100 [Sinemet 25/100] 1 tab PO QID 09/21/17 [History] Docusate Sodium [Colace] 200 mg PO BID PRN 09/21/17 [History] Finasteride [Proscar] 5 mg PO DAILY 09/21/17 [History] Furosemide [Lasix] 10 mg PO DAILY 09/21/17 [History] Lactose-Reduced Food [Ensure Plus] 237 ml PO BID 09/21/17 [History] Melatonin 10 mg PO HS 09/21/17 [History] Ropinirole HCl [Requip] 0.5 mg PO BID 09/21/17 [History] Tamsulosin HCl [Flomax] 0.4 mg PO DAILY 09/21/17 [History] Travoprost [Travatan Z] 1 drop OP HS 09/21/17 [History] Mirtazapine [Remeron] 7.5 mg PO HS #60 tablet 09/27/17 [Rx] Lactulose [Enulose] 30 ml PO BID 11/20/18 [History] Nitrofurantoin (BID) [Macrobid] 100 mg PO DAILY 11/20/18 [History] Sennosides [Senna] 17.2 mg PO QPM PRN 11/20/18 [History] Timolol Maleate 0.5% 1 drop OP QAM 11/20/18 [History] Cefdinir [Omnicef] 300 mg PO Q12HR #3 capsule 11/23/18 [Rx] metroNIDAZOLE [Flagyl] 500 mg PO TID #5 tablet 11/23/18 [Rx] Allergies/Adverse Reactions: Allergy/AdvReac Type Severity Reaction Status Date / Time Buspirone AdvReac Intermediate Agitated Verified 09/21/17 17:38 lorazepam AdvReac Intermediate Agitated Verified 09/21/17 17:38 latanoprost AdvReac Mild eye redness Verified 09/21/17 17:38 levofloxacin AdvReac Mild Cramping Verified 09/21/17 17:38 of the Muscles divalproex sodium AdvReac Unknown Agitated Verified 09/21/17 17:38 Date of admission: 11/20/18 02:36 [facility] care physician: [facility] Consults: 11/20/18 02:40 Consult to Speech Therapy [CONS] Routine Comment: Evaluate, develop and implement POC Reason for Consult: aspiration pneumonioa; assess swallow evaluation Call Completed: No 11/20/18 09:14 Consult to Nurse Navigator [CONS] Routine Comment: pn - Constitutional Vitals: Temp Pulse Resp BP Pulse Ox 97.8 F 51 17 183/61 95 11/23/18 07:01 11/23/18 07:01 11/23/18 07:01 11/23/18 07:01 11/23/18 07:01 General appearance: Present: A&O X 0, no acute distress. Absent: answers questions appropriately Exam: General: Ill-appearing and in no acute distress HEENT: No erythema of posterior pharynx. No exudates. Lymphatics: No mandibular or cervical lymphadenopathy Cardiovascular: RRR. No murmurs. No chest wall tenderness. Lungs: Diffuse rhonchi. Regular chest rise. Abdomen: Non-tender. No rebound or gaurding. Nl bowel sounds. Extremities: No edema. 2+ pulses radial and pedal pulses Skin: No rahses, abrasions, or contusions. Nl cap refill. Psych: Nl attention. A&Ox3 Neuro: financial processing clerk II-XII intact. 5/5 strength. Sensation to light touch and pinprick intact. - Patient Status Disposition: Hospice - Home Functional capacity at discharge: uses cane/walker Overall status at discharge: patient is back to baseline - Discharge Instructions Follow Up With: [facility] [Primary Care Provider] - - Diet and Activity Activity: increase activity as tolerated Diet: advance to your usual diet
--- NOTE | 2018-11-23 10:29 | Physician Discharge Referral ---
Home Health/Hosp Referral Info Transfer to: Hospice Attending Provider: Elio Valdivia MD Provider in Charge Post Discharge: Office Automation Clerk - Diagnosis (1) Sepsis Status: Acute (2) Acute respiratory failure with hypoxia Priority: Secondary Status: Acute (3) Aspiration pneumonia Priority: Secondary Status: Acute (4) TBI (traumatic brain injury) Priority: Secondary Status: Chronic - Respiratory Orders Smoking Cessation: Smoking cessation has been advised. For more information, call the [place] Tobacco Quit Line at 9-814-EHSH-NOW. - Diet/Nutrition Diet/Nutrition Orders: Regular - Activity Activity Orders: Up ad andreina - Transfer Medications Prescriptions: metroNIDAZOLE [Flagyl] 500 mg PO TID #5 tablet Cefdinir [Omnicef] 300 mg PO Q12HR #3 capsule Home Medications: Carbidopa/Levodopa 25/100 [Sinemet 25/100] 1 tab PO QID 09/21/17 [History] Docusate Sodium [Colace] 200 mg PO BID PRN 09/21/17 [History] Finasteride [Proscar] 5 mg PO DAILY 09/21/17 [History] Furosemide [Lasix] 10 mg PO DAILY 09/21/17 [History] Lactose-Reduced Food [Ensure Plus] 237 ml PO BID 09/21/17 [History] Melatonin 10 mg PO HS 09/21/17 [History] Ropinirole HCl [Requip] 0.5 mg PO BID 09/21/17 [History] Tamsulosin HCl [Flomax] 0.4 mg PO DAILY 09/21/17 [History] Travoprost [Travatan Z] 1 drop OP HS 09/21/17 [History] Mirtazapine [Remeron] 7.5 mg PO HS #60 tablet 09/27/17 [Rx] Lactulose [Enulose] 30 ml PO BID 11/20/18 [History] Nitrofurantoin (BID) [Macrobid] 100 mg PO DAILY 11/20/18 [History] Sennosides [Senna] 17.2 mg PO QPM PRN 11/20/18 [History] Timolol Maleate 0.5% 1 drop OP QAM 11/20/18 [History] Cefdinir [Omnicef] 300 mg PO Q12HR #3 capsule 11/23/18 [Rx] metroNIDAZOLE [Flagyl] 500 mg PO TID #5 tablet 11/23/18 [Rx] Allergies/Adverse Reactions: Allergy/AdvReac Type Severity Reaction Status Date / Time Buspirone AdvReac Intermediate Agitated Verified 09/21/17 17:38 lorazepam AdvReac Intermediate Agitated Verified 09/21/17 17:38 latanoprost AdvReac Mild eye redness Verified 09/21/17 17:38 levofloxacin AdvReac Mild Cramping Verified 09/21/17 17:38 of the Muscles divalproex sodium AdvReac Unknown Agitated Verified 09/21/17 17:38 Certification: Further, I certify that my clinical findings support that this patient is homebound (i.e. absences from home require considerable and taxing effort and are for medical reasons or confucianist services or infrequently or short duration when for other reasons) because: Limited mobility and limited life expectancy Homebound Reason: Patient requires assistance of a person or device to safely leave home, Severity of cardiac or pulmonary status limits activity tolerance Attestation: My signature below is to certify that this patient is under my care and that I, or nurse practitioner, or a physician's technical administrative assistant working with me, has a [id number] encounter with this patient. Luis Valdivia MD
== END 2018-11-23 13:22 | disposition hospice, home (50) | DRG 871 ==
LOC: EMEROOARM 21:48 → 2ANU 21:48 → SUATTDRO 11-20 02:36
PROVIDERS: ADMIT Pediatrics; ATTEND Internal Medicine